=== PATIENT | male | born 1980 | race Caucasian/White ===

== ENCOUNTER 2017-02-25 11:00 | Inpatient (IN) | payer MEDICARE, MEDICAID ==
[2017-02-25] MEDS ORDERED: LORazepam INJ* 2 MG/ML 1 ML VIAL IV PRN (14:48)
[2017-02-25] MEDS ORDERED: diPHENhydraMINE PO* 25 MG PO PRN (14:48)
[2017-02-25] MEDS ORDERED: Acetaminophen TAB* 325 MG PO PRN (14:50)
--- NOTE | 2017-02-25 15:21 | ADMNOTE ---
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 Antoine began having seizures as an , in the setting of fever a couple of days after getting a DPT shot. He's had medically refractory epilepsy ever since and his longest seizure-free period was about 3 months in childhood. He was initially treated with phenobarbital until Mom had concerns it was interfering with his learning and development. He has been on many anticonvulsants with little perceived benefit according to parents and significant side effects. He had VNS implanted at age 23. Antoine has two main types of seizures. The first they call "grand mals" which occur without warning, involve tonic stiffening of the arms and legs as well as clonic movements and generally last less than 2 minutes. He is lethargic after this and can be confused. He had a few of these over the weekend (he was home with parents). He also has "quick small" seizures which Mom demonstrates to be facial grimacing and tonic stiffening/myoclonus of the extremities. These occur more frequently than the grand mal seizures. He may fall because of these and wears a helmet. Antoine has also had documented PNEA in the past, but Mom says these don't occur any longer. He used to hold an arm or leg straight and say "I'm having a seizure ". These were documented during an LT admission in [place] and diagnosed as PNEA. Over the years, Antoine has frequently expressed to his parents or senior care workers "I just had a seizure". However, there are no outward signs of this and he is not confused or tired appearing when he says this. His parents say this has been going on for a long time, but more recently, Antoine has become somewhat fixated on the fact that he feels he needs to be in the hospital for monitoring. In addition, senior care workers feel he has been saying this more often. Neither the senior care workers nor his parents say these occur every day. Rather, it is "hit or miss", and may happen a few times per week. When asked what he feels when he tells people he just had a seizure, he is unable to describe the feeling. It is not clear when this last occurred. This long-term video EEG was requested to try and characterize these spells. Mom indicates she wanted to respect Antoine's need to be in the hospital for this. An attempt was made to perform an ambulatory EEG but there was a technical problem and data was not recorded. PRIOR AEDs: phenobarbital: stopped due to concerns for cognitive side effects phenytoin: ? lack of efficacy gabapentin: behavioral problems levetiracetam: behavioral problems/psychogenic event topiramate: behavioral probs felbamate: tried for short time, unknown reason for stopping zonisamide: slowed cognition, behavioral problems? Tegretol XR: current (dad indicates he had behavioral problems with higher doses as a child) Lamictal: current Banzel: current (started around 2012) Epilepsy Risk Factors: Developmental delay - walked around 22 months, had language regression, graduated [employer] age 23. Febrile seizure with DPT PNEA Risk Factors: intellectual disability, history of behavioral problems PMH/Surg Hx/FS Hx/Imm Hx Endocrine/Hematology History: Denies: Hx Diabetes, Hx Thyroid Disease Cardiovascular History: Denies: Hx Hypertension Respiratory History: Reports: Hx Seasonal Allergies Denies: Hx Asthma, Hx Chronic Obstructive Pulmonary Disease (COPD) GI History: Denies: Hx Ulcer Neurological History: Reports: Hx Seizures, Other Neuro Impairments/Disorders - MR, epilepsy Psychiatric History: Reports: Hx Depression - Surgical History Surgery Procedure, Year, and Place: 2004 VNS Placement, NEURO SURGERY Infectious Disease History: Denies: Hx Hepatitis, Hx Human Immunodeficiency Virus (HIV), Traveled Outside the [place] in Last 30 Days - Family History Known Family History: Positive: Unknown Family History: No FHx of CVA. FHx of skin CA - Social History Lives: [facility] Alcohol Use: None Substance Use Type: Reports: None Smoking Status (MU): Never Smoked Tobacco EMU Exam - Exam Physical/Neurological Exam: Physical Exam: General: Well appearing in no acute distress. Eyes: normal conjunctiva, pupils were equal and reactive. Neck: supple, no bruit ENT: atraumatic, normal oropharynx Pulmonary: clear to auscultation, good respiratory effort Cardiac: regular rate and rhythmic, no murmurs/rubs/gallops, pulses palpable MSK: no extremity deformities Derm: no rashes or lesions Neurological Exam: Mental Status: Awake and alert. Oriented to person, place. Spontaneous speech is sparse, slow with mild dysarthria. Cranial Nerves: Visual cortes full to confrontation. Fundoscopic examination not done. Pupils were equal, round, and reactive constricting from 3mm to 2mm. Versions were full and without nystagmus. Facial musculature and sensation were symmetric. Hearing grossly intact to finger rub. Palate was upgoing bilaterally. Tongue was midline. Shoulder shrug was symmetric. Motor: Bulk, tone, and strength were normal throughout. Pronator drift was absent. There were no abnormal movements. Sensory: Sensation to light touch intact. Romberg was deferred. Coordination: Finger to nose intact. Reflexes: 2+ throughout the upper and lower extremities with downgoing toes bilaterally. Gait: deferred. EMU Review of Systems Review of Systems: A 12 point review of systems was completed and significantly positive for: as per HPI. The remainder of the review was negative except as stated above in the HPI. EMU Diagnostics - Diagnostic Most Recent Vital Signs: Vital Signs: Temp Pulse Resp BP Pulse Ox 98.1 F 70 16 113/77 100 02/25/17 13:41 02/25/17 13:41 02/25/17 13:41 02/25/17 13:41 02/25/17 13:41 Interim video-EEG long-term monitoring report: 07/15/11 EEG frequent discharges of the left central/parietal region EMU Assessment/Plan - Assessment/Plan Assessment/Plan: 36 year old with medically intractable epilepsy and developmental disability presenting for characterization of episodes where he reports to staff or parents that he just had a seizure, but outwardly does not appear to be having a seizure. He has two main known epileptic seizure types consisting of convulsions and shorter episodes of tonic stiffening/myoclonus, the latter of which are more frequent. The frequency of the episodes of concern is not clear, but seem to happen every week and at one point were reported to Dr. Albarado to be occurring daily. The goal of the present prison video/EEG monitoring session is to characterize these events of possible subclinical seizure activity. Plan: Admit to the Epilepsy Service, Dr. Hook attending intermediate frame tender video EEG monitoring for the purpose of characterizing events above Seizure precautions IV lorazepam as needed for prolonged seizures > 3 minutes Home AED regimen: Tegretol XR 400mg BID and 100mg at bedtime, Banzel 600mg BID, Lamictal 400mg QAM and 450mg QPM. Will continue medications unchanged since these episodes are happening semi-regularly despite medications. Continue on other prescribed home medications.
[2017-02-25] MEDS: RUFINAMIDE 400 MG PO SCH (17:01)
[2017-02-25] MEDS: Fluticasone NASAL SPRAY 50MCG* 16 gm SPRAY BTL BOTH NARES SCH (20:07)
[2017-02-25] MEDS: LAMOTRIGINE 100 MG PO SCH ×2 (20:08)
[2017-02-25] MEDS: CARBAMAZEPINE 100 MG PO SCH (20:09)
[2017-02-25] MEDS: CARBAMAZEPINE 200 MG PO SCH (20:10)
[2017-02-25] MEDS: DOCUSATE 100 MG PO SCH (20:11)
[2017-02-25] MEDS: GUAR GUM PO SCH (20:11)
[2017-02-25] MEDS: [UNRECOGNIZED DRUG - OTHER] TOPICAL SCH (20:23)
[2017-02-26] MEDS: [UNRECOGNIZED DRUG - OTHER] TOPICAL SCH ×2 (09:19→20:48)
[2017-02-26] MEDS: RUFINAMIDE 400 MG PO SCH ×2 (09:31→17:12)
[2017-02-26] MEDS: LAMOTRIGINE 100 MG PO SCH ×3 (09:31→20:44)
[2017-02-26] MEDS: DOCUSATE 100 MG PO SCH ×2 (09:31→20:44)
[2017-02-26] MEDS: FLUOXETINE 20 MG PO SCH (09:32)
[2017-02-26] MEDS: CARBAMAZEPINE 200 MG PO SCH ×2 (09:32→20:46)
[2017-02-26] MEDS: [UNRECOGNIZED DRUG - OTHER] PO SCH (09:33)
[2017-02-26] MEDS: FLUOXETINE 10 MG PO SCH (09:33)
[2017-02-26] MEDS: CETIRIZINE 10 MG PO PRN (09:34)
[2017-02-26] MEDS: GUAR GUM PO SCH ×2 (09:34→20:48)
--- NOTE | 2017-02-26 11:12 | PN ---
Epilepsy Service Progress Note - Subjective DOS 02/26/17 Patient experienced a typical seizure at 19:14 which consisted of tonic stiffening. No events of him feeling like he's having a seizure. - Medications Active Medications: Acetaminophen (Tylenol Tab*) 650 mg PO Q4H PRN PRN Reason: FEVER/PAIN Carbamazepine (Tegretol Xr Tab(*)) 100 mg PO BEDTIME [facility] Last Admin: 02/25/17 20:09 Dose: 100 mg Carbamazepine (Tegretol Xr Tab(*)) 400 mg PO BID [facility] Last Admin: 02/26/17 09:32 Dose: 400 mg Cetirizine HCl (Zyrtec*) 10 mg PO DAILY PRN; Protocol PRN Reason: Allergy Symptoms Last Admin: 02/26/17 09:34 Dose: 10 mg Diphenhydramine HCl (Benadryl Po*) 25 mg PO Q6H PRN PRN Reason: ITCHING Docusate Sodium (Colace Cap*) 100 mg PO BID [facility] Last Admin: 02/26/17 09:31 Dose: 100 mg Fluoxetine HCl (Prozac Cap*) 10 mg PO QAM [facility] Last Admin: 02/26/17 09:33 Dose: 10 mg Fluoxetine HCl (Prozac Cap*) 60 mg PO QAM [facility] Last Admin: 02/26/17 09:32 Dose: 60 mg Fluticasone Propionate (Flonase Nasal [place] 50mcg*) 2 spray BOTH NARES 1999 [facility] Last Admin: 02/25/17 20:07 Dose: 2 spray Lamotrigine (Lamictal Tab(*)) 400 mg PO QA [facility] Last Admin: 02/26/17 09:31 Dose: 400 mg Lamotrigine (Lamictal Tab(*)) 400 mg PO 1999 [facility] Last Admin: 02/25/17 20:08 Dose: 400 mg Lamotrigine (Lamictal Tab(*)) 50 mg PO 1999 [facility] Last Admin: 02/25/17 20:08 Dose: 50 mg Lorazepam (Ativan Inj*) 1 mg IV Q8H PRN PRN Reason: Generalized Tonic Clonic Seizu Multivitamins (Theragran Tab*) 1 tab PO DAILY [facility] Last Admin: 02/26/17 09:33 Dose: 1 tab Non-Formulary Medication ([place] Tar-Salicylic Acid [Tarsum 10-5 %]) 1 sha TOPICAL EVERY OTHER DAY [facility] Pto: Guar Gum [ Nutrisource Fiber] 1 Kevin 1 kevin PO BID [facility] Last Admin: 02/26/17 09:34 Dose: 1 kevin Pto: Rufinamide [ (Banzel] 400 Mg Tabs) 600 mg PO 0800,1700 [facility] Last Admin: 02/26/17 09:31 Dose: 600 mg Pto:Nf Med* (Bobby (Derm Compound)) 1 apply TOPICAL BID [facility] Last Admin: 02/26/17 09:19 Dose: Not Given EMU Diagnostics - Diagnostic Most Recent Vital Signs: Vital Signs: Temp Pulse Resp BP Pulse Ox 97.9 F 81 18 125/60 100 02/26/17 08:58 02/26/17 08:58 02/26/17 08:00 02/26/17 08:58 02/25/17 19:23 Interim video-EEG long-term monitoring report: #01 02/25: Medications: Tegretol XR 400mg BID and 100mg at bedtime, Banzel 600mg BID, Lamictal 400mg QAM and 450mg QPM Background demonstrates diffuse mixed slowing with slightly higher amplitudes evident over the left hemispere, likely secondary to breach effect. There is a PDR of ~6Hz. There is intermittent focal slowing in the left paracentral region affecting C3, P3 and O1. There are frequent, multifocal discharges with the majority being over the left hemisphere. There are two populations which are seen most frequently. The first are moderate to high voltage, spike and slow wave, sometimes with polyspike components, in the left temporal region. These are typically maximal at T3 and T5 with a field to T1 and F7 but sometimes shift with maximal expression seen over T1 and F7. The second population is maximally expressed at P3 and T5 with a field to PZ and these are moderate voltage spike and slow wave discharges. There are also left frontocentral sharp waves maximal at FP1 and and F3 with a field to C3 and into the central regions. At times, these discharges appeared in clusters lasting 2 to 3 seconds at 4 to 5 Hz. In the right hemisphere, there are occasional, independent moderate voltage, spike and slow wave discharges maximally expressed at T2, F8 and T4 with a field to T6. The patient experienced a seizure at 19:14. The EEG demonstrated sudden diffuse voltage suppression for 7 seconds followed by rhythmic 5 Hz activity primarily in the left hemisphere, punctuated by high voltage sharp waves at 2 Hz at CZ and C3 with a field to the left frontal region as well (FP1). This gradually decreased in frequency over 10 seconds before abruptly terminating. Clinically, the patient exhibiting sudden tonic stiffening bilaterally with legs extended and his elbows bent and wrists flexed down near his waist. His neck flexed forward slightly and he had a facial grimace. He slowly relaxed once the EEG demonstrated 5 Hz rhythmic activity. Nursing began testing him immediately upon entering the room, after the seizure was over, and he was able to follow commands. When asked if he felt back to normal he said "I don't know", in his typical fashion. EMU Exam - Exam Physical/Neurological Exam: Physical Exam: General: Well appearing in no acute distress. MSK: no extremity deformities Derm: no rashes or lesions Neurological Exam: Mental Status: Awake and alert. Oriented to person, place. Spontaneous speech is sparse, slow with mild dysarthria. He was watching [employer] this morning Cranial Nerves: Visual cortes full to confrontation. Pupils were equal, round, and reactive constricting from 3mm to 2mm. Versions were full and without nystagmus. Facial musculature and sensation were symmetric. Hearing grossly intact to finger rub. Palate was upgoing bilaterally. Tongue was midline. Shoulder shrug was symmetric. Motor: Bulk, tone, and strength were normal throughout. Pronator drift was absent. There were no abnormal movements. Sensory: Sensation to light touch intact. Romberg was deferred. Coordination: Finger to nose intact. Reflexes: 2+ throughout the upper and lower extremities with downgoing toes bilaterally. Gait: deferred. 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 His seizures typically consist of relatively brief episodes of tonic stiffening and other episodes of convulsions. He is admitted for LTM to characterize events where he reports to family or caregivers that he just had a seizure, but there is no outward sign of this. This has been going on for years but may have increased in frequency more recently. Differential includes subclinical seizures as well PNEA (he has a history of this in the past). No typical events recorded yet. Plan: * Continue terminal manager video EEG monitoring to capture typical episodes * Seizure precautions * continue home doses of AEDs at this time - Tegretol XR 400mg BID and 100mg QHS , Banzel 600mg BID and Lamictal 400mg QAM and 450mg QPM * continue other home meds * purpose and goal of monitoring session reinforced with [facility] staff member present with Antoine this morning. * Ativan 1mg IV prn GTC
--- NOTE | 2017-02-26 11:50 | EEG ---
HALFWAY VIDEO/EEG MONITORING - Monitoring Monitoring Start Date: 02/25/17 Current Monitoring Session: 02/25/17 to [] Introduction: INTRODUCTION: The EEG was monitored from 21 scalp electrodes. Nineteen electrodes consisted of the standard parasagittal, temporal and midline leads of the International 10 -20 system. In addition, special electrodes FT9 and FT10 were placed. EEG data were recorded on an [employer] system with simultaneous MPEG-4 digital video recording of patient behavior. EEG recording was in a monopolar montage with all electrodes referenced to FCz. Significant behavioral events were signaled by an event button, or putative electrical seizure events were detected by a computer program. All EEG data were reviewed in their entirety on a monitor with reconstruction of montages and adjustments of sensitivity and filtering. Simultaneous patient behavior was viewed on an adjacent monitor and correlated with the EEG. - Medications Active Medications: Acetaminophen (Tylenol Tab*) 650 mg PO Q4H PRN PRN Reason: FEVER/PAIN Carbamazepine (Tegretol Xr Tab(*)) 100 mg PO BEDTIME [facility] Last Admin: 02/25/17 20:09 Dose: 100 mg Carbamazepine (Tegretol Xr Tab(*)) 400 mg PO BID [facility] Last Admin: 02/26/17 09:32 Dose: 400 mg Cetirizine HCl (Zyrtec*) 10 mg PO DAILY PRN; Protocol PRN Reason: Allergy Symptoms Last Admin: 02/26/17 09:34 Dose: 10 mg Diphenhydramine HCl (Benadryl Po*) 25 mg PO Q6H PRN PRN Reason: ITCHING Docusate Sodium (Colace Cap*) 100 mg PO BID [facility] Last Admin: 02/26/17 09:31 Dose: 100 mg Fluoxetine HCl (Prozac Cap*) 10 mg PO QAM [facility] Last Admin: 02/26/17 09:33 Dose: 10 mg Fluoxetine HCl (Prozac Cap*) 60 mg PO QAM [facility] Last Admin: 02/26/17 09:32 Dose: 60 mg Fluticasone Propionate (Flonase Nasal [place] 50mcg*) 2 spray BOTH NARES 1999 [facility] Last Admin: 02/25/17 20:07 Dose: 2 spray Lamotrigine (Lamictal Tab(*)) 400 mg PO QAM [facility] Last Admin: 02/26/17 09:31 Dose: 400 mg Lamotrigine (Lamictal Tab(*)) 400 mg PO 1999 [facility] Last Admin: 02/25/17 20:08 Dose: 400 mg Lamotrigine (Lamictal Tab(*)) 50 mg PO 1999 [facility] Last Admin: 02/25/17 20:08 Dose: 50 mg Lorazepam (Ativan Inj*) 1 mg IV Q8H PRN PRN Reason: Generalized Tonic Clonic Seizu Multivitamins (Theragran Tab*) 1 tab PO DAILY [facility] Last Admin: 02/26/17 09:33 Dose: 1 tab Non-Formulary Medication ([place] Tar-Salicylic Acid [Tarsum 10-5 %]) 1 sha TOPICAL EVERY OTHER DAY [facility] Pto: Guar Gum [ Nutrisource Fiber] 1 Kevin 1 kevin PO BID [facility] Last Admin: 02/26/17 09:34 Dose: 1 kevin Pto: Rufinamide [ (Banzel] 400 Mg Tabs) 600 mg PO 0800,1700 [facility] Last Admin: 02/26/17 09:31 Dose: 600 mg Pto:Nf Med* (Bobby (Derm Compound)) 1 apply TOPICAL BID [facility] Last Admin: 02/26/17 09:19 Dose: Not Given - Description Background: The waking background showed diminished organization with defined but reduced anterior-posterior voltage and frequency gradients. There was a posterior dominant rhythm of 6 Hertz, which was symmetrical and showed normal reactivity but is slower than expected for age. Anteriorly, there was the expected pattern of lower voltage and more irregular theta and beta rhythms. The background demonstrated diffuse mixed slowing with slightly higher amplitudes evident over the left hemispere, likely secondary to breach effect. There is intermittent focal slowing in the left paracentral region affecting C3, P3 and O1. The sleep background was appropriately organized with well-developed spindles and vertex waves indicative of stage 2 sleep. These sleep transients showed appropriate morphology and were bilaterally synchronous and symmetrical but were high amplitude over the left hemisphere secondary to breach effect. Development of diffuse delta range frequencies with dropout of stage 2 architecture accompanied transition to slow wave sleep, and a lower voltage mixed frequency pattern associated with eye movements was consistent with REM sleep. Intericatal Epileptiform Activity: #01 02/25: Medications: Tegretol XR 400mg BID and 100mg QHS, Lamictal 400mg QAM and 450mg QPM and Banzel 600mg BID Background demonstrates diffuse mixed slowing with slightly higher amplitudes evident over the left hemispere, likely secondary to breach effect. There is a PDR of ~6Hz. There is intermittent focal slowing in the left paracentral region affecting C3, P3 and O1. There are frequent, multifocal discharges with the majority being over the left hemisphere. There are two populations which are seen most frequently. The first are moderate to high voltage, spike and slow wave, sometimes with polyspike components, in the left temporal region. These are typically maximal at T3 and T5 with a field to T1 and F7 but sometimes shift with maximal expression seen over T1 and F7. The second population is maximally expressed at P3 and T5 with a field to PZ and these are moderate voltage spike and slow wave discharges. When the patient is resting quietly, these are sometimes seen to occur at 2 to 3 Hz for up to a minute. There are also left frontocentral sharp waves maximal at FP1 and and F3 with a field to C3 and into the central regions. At times, these discharges appeared in clusters lasting 2 to 3 seconds at 4 to 5 Hz. In the right hemisphere, there are occasional, independent moderate voltage, spike and slow wave discharges maximally expressed at T2, F8 and T4 with a field to T6. #02 /11: Medications: Tegretol XR 400mg BID and 100mg QHS, Lamictal 400mg QAM and 450mg QPM and Banzel 600mg BID Background same as previous day and described above. No changes Ictal Activity: #01 02/25: The patient experienced a seizure at 19:14. The EEG demonstrated sudden diffuse voltage suppression for 7 seconds followed by rhythmic 5 Hz activity primarily in the left hemisphere, punctuated by high voltage sharp waves at 2 Hz at CZ and C3 with a field to the left frontal region as well (FP1) . This gradually decreased in frequency over 10 seconds before abruptly terminating. Clinically, the patient exhibiting sudden tonic stiffening bilaterally with legs extended and his elbows bent and wrists flexed down near his waist. His neck flexed forward slightly and he had a facial grimace. He slowly relaxed once the EEG demonstrated 5 Hz rhythmic activity. Nursing began testing him immediately upon entering the room, after the seizure was over, and he was able to follow commands. When asked if he felt back to normal he said "I don't know", in his typical fashion. Events of concern not captured. #02 02/26: He had two typical tonic seizures during this day of recording. The first occurred at 13:58 and the second at 15:54. He had tonic stiffening of the right greater than left arm, with some repetitive movement of the left hand. The seizures last seconds but a clear termination is not evident. He was able to press the event button himself after the second seizure. He is back to baseline almost immediately. He had a typical event of concern at 17:47 where he indicated to his mother "I think I felt like I shook just then". Just prior to this, he was eating dinner with the fork in his left hand and his right hand was noted to move and has some subtle myoclonic movements. These movements followed a 0.5 second discharge cluster in the left frontal region, but were not clearly time-locked to this activity. In addition, there were many other times when similar discharge clusters were noted in the EEG and there was no clinical manifestation. These movements were potentially, but not definitively, epileptic in nature.
[2017-02-26] MEDS: Fluticasone NASAL SPRAY 50MCG* 16 gm SPRAY BTL BOTH NARES SCH (20:42)
[2017-02-26] MEDS: CARBAMAZEPINE 100 MG PO SCH (20:44)
[2017-02-27] MEDS: RUFINAMIDE 400 MG PO SCH ×2 (08:35→17:03)
[2017-02-27] MEDS: GUAR GUM PO SCH ×2 (08:35→20:02)
[2017-02-27] MEDS: CARBAMAZEPINE 200 MG PO SCH ×2 (08:37→20:21)
[2017-02-27] MEDS: [UNRECOGNIZED DRUG - OTHER] PO SCH (08:38)
[2017-02-27] MEDS: FLUOXETINE 20 MG PO SCH (08:39)
[2017-02-27] MEDS: FLUOXETINE 10 MG PO SCH (08:39)
[2017-02-27] MEDS: CETIRIZINE 10 MG PO PRN (08:39)
[2017-02-27] MEDS: DOCUSATE 100 MG PO SCH ×2 (08:40→20:04)
[2017-02-27] MEDS: LAMOTRIGINE 100 MG PO SCH ×3 (08:40→20:03)
[2017-02-27] MEDS: [UNRECOGNIZED DRUG - OTHER] TOPICAL SCH ×2 (08:46→20:05)
[2017-02-27] MEDS ORDERED: SALICYLIC ACID TOPICAL SCH (09:00)
[2017-02-27] MEDS ORDERED: COAL TAR TOPICAL SCH (09:00)
--- NOTE | 2017-02-27 13:29 | PN ---
Epilepsy Service Progress Note - Subjective DOS 02/27/17 Patient had 2 tonic seizures yesterday. He had one episode where he told his mother he felt like he shook a little bit. This was a typical event. - Medications Active Medications: Acetaminophen (Tylenol Tab*) 650 mg PO Q4H PRN PRN Reason: FEVER/PAIN Carbamazepine (Tegretol Xr Tab(*)) 100 mg PO BEDTIME [facility] Last Admin: 02/26/17 20:44 Dose: 100 mg Carbamazepine (Tegretol Xr Tab(*)) 400 mg PO BID [facility] Last Admin: 02/27/17 08:37 Dose: 400 mg Cetirizine HCl (Zyrtec*) 10 mg PO DAILY PRN; Protocol PRN Reason: Allergy Symptoms Last Admin: 02/27/17 08:39 Dose: 10 mg Diphenhydramine HCl (Benadryl Po*) 25 mg PO Q6H PRN PRN Reason: ITCHING Docusate Sodium (Colace Cap*) 100 mg PO BID [facility] Last Admin: 02/27/17 08:40 Dose: 100 mg Fluoxetine HCl (Prozac Cap*) 10 mg PO QAM [facility] Last Admin: 02/27/17 08:39 Dose: 10 mg Fluoxetine HCl (Prozac Cap*) 60 mg PO QAM [facility] Last Admin: 02/27/17 08:39 Dose: 60 mg Fluticasone Propionate (Flonase Nasal [place] 50mcg*) 2 spray BOTH NARES 1999 [facility] Last Admin: 02/26/17 20:42 Dose: 2 spray Lamotrigine (Lamictal Tab(*)) 400 mg PO QA [facility] Last Admin: 02/27/17 08:40 Dose: 400 mg Lamotrigine (Lamictal Tab(*)) 400 mg PO 1999 [facility] Last Admin: 02/26/17 20:44 Dose: 400 mg Lamotrigine (Lamictal Tab(*)) 50 mg PO 1999 [facility] Last Admin: 02/26/17 20:43 Dose: 50 mg Lorazepam (Ativan Inj*) 1 mg IV Q8H PRN PRN Reason: Generalized Tonic Clonic Seizu Multivitamins (Theragran Tab*) 1 tab PO DAILY [facility] Last Admin: 02/27/17 08:38 Dose: 1 tab Non-Formulary Medication ([place] Tar-Salicylic Acid [Tarsum 10-5 %]) 1 sha TOPICAL EVERY OTHER DAY [facility] Pto: Guar Gum [ Nutrisource Fiber] 1 Kevin 1 kevin PO BID [facility] Last Admin: 02/27/17 08:35 Dose: 1 kevin Pto: Rufinamide [ (Banzel] 400 Mg Tabs) 600 mg PO 0800,1700 [facility] Last Admin: 02/27/17 08:35 Dose: 600 mg Pto:Nf Med* (Bobby (Derm Compound)) 1 apply TOPICAL BID [facility] Last Admin: 02/27/17 08:46 Dose: 1 apply EMU Diagnostics - Diagnostic Most Recent Vital Signs: Vital Signs: Temp Pulse Resp BP Pulse Ox 98.2 F 70 18 100/56 100 02/27/17 08:37 02/27/17 08:37 02/27/17 08:37 02/27/17 08:37 02/27/17 08:37 Interim video-EEG long-term monitoring report: #02/25: Medications: Tegretol XR 400mg BID and 100mg at bedtime, Banzel 600mg BID, Lamictal 400mg QAM and 450mg QPM Background demonstrates diffuse mixed slowing with slightly higher amplitudes evident over the left hemispere, likely secondary to breach effect. There is a PDR of ~6Hz. There is intermittent focal slowing in the left paracentral region affecting C3, P3 and O1. There are frequent, multifocal discharges with the majority being over the left hemisphere. There are two populations which are seen most frequently. The first are moderate to high voltage, spike and slow wave, sometimes with polyspike components, in the left temporal region. These are typically maximal at T3 and T5 with a field to T1 and F7 but sometimes shift with maximal expression seen over T1 and F7. The second population is maximally expressed at P3 and T5 with a field to PZ and these are moderate voltage spike and slow wave discharges. There are also left frontocentral sharp waves maximal at FP1 and and F3 with a field to C3 and into the central regions. At times, these discharges appeared in clusters lasting 2 to 3 seconds at 4 to 5 Hz. In the right hemisphere, there are occasional, independent moderate voltage, spike and slow wave discharges maximally expressed at T2, F8 and T4 with a field to T6. The patient experienced a seizure at 19:14. The EEG demonstrated sudden diffuse voltage suppression for 7 seconds followed by rhythmic 5 Hz activity primarily in the left hemisphere, punctuated by high voltage sharp waves at 2 Hz at CZ and C3 with a field to the left frontal region as well (FP1). This gradually decreased in frequency over 10 seconds before abruptly terminating. Clinically, the patient exhibiting sudden tonic stiffening bilaterally with legs extended and his elbows bent and wrists flexed down near his waist. His neck flexed forward slightly and he had a facial grimace. He slowly relaxed once the EEG demonstrated 5 Hz rhythmic activity. Nursing began testing him immediately upon entering the room, after the seizure was over, and he was able to follow commands. When asked if he felt back to normal he said "I don't know", in his typical fashion. #02 02/26: No change in medications. Patient had 2 tonic seizures with similar characteristics as described above. He also had one typical event where he felt like he was shaking. His right hand was noted to jerk a little bit. This occurred immediately after a left frontal discharge cluster was noted. 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 MSK: no extremity deformities Derm: no rashes or lesions Neurological Exam: Mental Status: Awake and alert. Oriented to person, place. Spontaneous speech is sparse, slow with mild dysarthria. Cranial Nerves: Visual cortes full to confrontation. Pupils were equal, round, and reactive constricting from 3mm to 2mm. Versions were full and without nystagmus. Facial musculature and sensation were symmetric. Hearing grossly intact to finger rub. Palate was upgoing bilaterally. Tongue was midline. Shoulder shrug was symmetric. Motor: Bulk, tone, and strength were normal throughout. Pronator drift was absent. There were no abnormal movements. Sensory: Sensation to light touch intact. Romberg was deferred. Coordination: Finger to nose intact. Reflexes: 2+ throughout the upper and lower extremities with downgoing toes bilaterally. Gait: deferred. 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 His seizures typically consist of relatively brief episodes of tonic stiffening and other episodes of convulsions. He is admitted for LTM to characterize events where he reports to family or caregivers that he just had a seizure, but there is no outward sign of this. This has been going on for years but may have increased in frequency more recently. Differential includes subclinical seizures as well PNEA (he has a history of this in the past). 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 He has also had 3 tonic seizure. Will continue LTM to capture additional spells Plan: * Continue [facility] video EEG monitoring to capture typical episodes * Seizure precautions * continue home doses of AEDs - Tegretol XR 400mg BID and 100mg QHS, Banzel 600mg BID and Lamictal 400mg QAM and 450mg QPM * continue other home meds. * Ativan 1mg IV prn GTC
[2017-02-27] MEDS: Fluticasone NASAL SPRAY 50MCG* 16 gm SPRAY BTL BOTH NARES SCH (20:02)
[2017-02-27] MEDS: CARBAMAZEPINE 100 MG PO SCH (20:04)
[2017-02-28 08:16] VITALS: BP 108/71
[2017-02-28] MEDS: DOCUSATE 100 MG PO SCH (08:33)
[2017-02-28] MEDS: GUAR GUM PO SCH (08:33)
[2017-02-28] MEDS: LAMOTRIGINE 100 MG PO SCH (08:34)
[2017-02-28] MEDS: CARBAMAZEPINE 200 MG PO SCH (08:38)
[2017-02-28] MEDS: FLUOXETINE 20 MG PO SCH (08:38)
[2017-02-28] MEDS: [UNRECOGNIZED DRUG - OTHER] TOPICAL SCH (08:39)
[2017-02-28] MEDS: [UNRECOGNIZED DRUG - OTHER] PO SCH (08:39)
[2017-02-28] MEDS: FLUOXETINE 10 MG PO SCH (08:39)
[2017-02-28] MEDS: CETIRIZINE 10 MG PO PRN (08:40)
[2017-02-28] MEDS: RUFINAMIDE 400 MG PO SCH (08:40)
--- NOTE | 2017-02-28 13:08 | PN ---
Epilepsy Service Progress Note - Subjective DOS 02/28/17 Antoine had one tonic seizure around 1900 last night. No events of feeling like he was having a seizure without any physical signs. Mom is grateful for the admission and now looking towards getting VNS battery changed and finding out more about the possibility of medical marijuana in him. - Medications Active Medications: Acetaminophen (Tylenol Tab*) 650 mg PO Q4H PRN PRN Reason: FEVER/PAIN Carbamazepine (Tegretol Xr Tab(*)) 100 mg PO BEDTIME [facility] Last Admin: 02/27/17 20:04 Dose: 100 mg Carbamazepine (Tegretol Xr Tab(*)) 400 mg PO BID [facility] Last Admin: 02/28/17 08:38 Dose: 400 mg Cetirizine HCl (Zyrtec*) 10 mg PO DAILY PRN; Protocol PRN Reason: Allergy Symptoms Last Admin: 02/28/17 08:40 Dose: 10 mg Diphenhydramine HCl (Benadryl Po*) 25 mg PO Q6H PRN PRN Reason: ITCHING Docusate Sodium (Colace Cap*) 100 mg PO BID [facility] Last Admin: 02/28/17 08:33 Dose: 100 mg Fluoxetine HCl (Prozac Cap*) 10 mg PO QAM [facility] Last Admin: 02/28/17 08:39 Dose: 10 mg Fluoxetine HCl (Prozac Cap*) 60 mg PO QAM [facility] Last Admin: 02/28/17 08:38 Dose: 60 mg Fluticasone Propionate (Flonase Nasal [place] 50mcg*) 2 spray BOTH NARES 1999 [facility] Last Admin: 02/27/17 20:02 Dose: 2 spray Lamotrigine (Lamictal Tab(*)) 400 mg PO QAM [facility] Last Admin: 02/28/17 08:34 Dose: 400 mg Lamotrigine (Lamictal Tab(*)) 400 mg PO 1999 [facility] Last Admin: 02/27/17 20:03 Dose: 400 mg Lamotrigine (Lamictal Tab(*)) 50 mg PO 1999 [facility] Last Admin: 02/27/17 20:02 Dose: 50 mg Lorazepam (Ativan Inj*) 1 mg IV Q8H PRN PRN Reason: Generalized Tonic Clonic Seizu Multivitamins (Theragran Tab*) 1 tab PO DAILY [facility] Last Admin: 02/28/17 08:39 Dose: 1 tab Non-Formulary Medication ([place] Tar-Salicylic Acid [Tarsum 10-5 %]) 1 sha TOPICAL EVERY OTHER DAY [facility] Pto: Guar Gum [ Nutrisource Fiber] 1 Kevin 1 kevin PO BID [facility] Last Admin: 02/28/17 08:33 Dose: 1 kevin Pto: Rufinamide [ (Banzel] 400 Mg Tabs) 600 mg PO 0800,1700 [facility] Last Admin: 02/28/17 08:40 Dose: 600 mg Pto:Nf Med* (Bobby (Derm Compound)) 1 apply TOPICAL BID [facility] Last Admin: 02/28/17 08:39 Dose: 1 apply EMU Diagnostics - Diagnostic Most Recent Vital Signs: Vital Signs: Temp Pulse Resp BP Pulse Ox 98.0 F 69 18 108/71 97 02/28/17 08:15 02/28/17 08:15 02/28/17 08:15 02/28/17 08:15 02/28/17 08:15 Interim video-EEG long-term monitoring report: #02/25: Medications: Tegretol XR 400mg BID and 100mg at bedtime, Banzel 600mg BID, Lamictal 400mg QAM and 450mg QPM Background demonstrates diffuse mixed slowing with slightly higher amplitudes evident over the left hemispere, likely secondary to breach effect. There is a PDR of ~6Hz. There is intermittent focal slowing in the left paracentral region affecting C3, P3 and O1. There are frequent, multifocal discharges with the majority being over the left hemisphere. There are two populations which are seen most frequently. The first are moderate to high voltage, spike and slow wave, sometimes with polyspike components, in the left temporal region. These are typically maximal at T3 and T5 with a field to T1 and F7 but sometimes shift with maximal expression seen over T1 and F7. The second population is maximally expressed at P3 and T5 with a field to PZ and these are moderate voltage spike and slow wave discharges. There are also left frontocentral sharp waves maximal at FP1 and and F3 with a field to C3 and into the central regions. At times, these discharges appeared in clusters lasting 2 to 3 seconds at 4 to 5 Hz. In the right hemisphere, there are occasional, independent moderate voltage, spike and slow wave discharges maximally expressed at T2, F8 and T4 with a field to T6. The patient experienced a seizure at 19:14. The EEG demonstrated sudden diffuse voltage suppression for 7 seconds followed by rhythmic 5 Hz activity primarily in the left hemisphere, punctuated by high voltage sharp waves at 2 Hz at CZ and C3 with a field to the left frontal region as well (FP1). This gradually decreased in frequency over 10 seconds before abruptly terminating. Clinically, the patient exhibiting sudden tonic stiffening bilaterally with legs extended and his elbows bent and wrists flexed down near his waist. His neck flexed forward slightly and he had a facial grimace. He slowly relaxed once the EEG demonstrated 5 Hz rhythmic activity. Nursing began testing him immediately upon entering the room, after the seizure was over, and he was able to follow commands. When asked if he felt back to normal he said "I don't know", in his typical fashion. #02 10: No change in medications. Patient had 2 tonic seizures with similar characteristics as described above. He also had one typical event where he felt like he was shaking. His right hand was noted to jerk a little bit. This occurred immediately after a left frontal discharge cluster was noted. 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 Patient had 1 tonic seizure with similar characteristics EMU Exam - Exam Physical/Neurological Exam: Physical Exam: General: Well appearing in no acute distress. MSK: no extremity deformities Derm: no rashes or lesions Neurological Exam: Mental Status: Awake and alert. Oriented to person, place. Spontaneous speech is sparse, slow with mild dysarthria. Cranial Nerves: Visual cortes full to confrontation. Pupils were equal, round, and reactive constricting from 3mm to 2mm. Versions were full and without nystagmus. Facial musculature and sensation were symmetric. Hearing grossly intact to finger rub. Palate was upgoing bilaterally. Tongue was midline. Shoulder shrug was symmetric. Motor: Bulk, tone, and strength were normal throughout. Pronator drift was absent. There were no abnormal movements. Sensory: Sensation to light touch intact. Romberg was deferred. Coordination: Finger to nose intact. Reflexes: 2+ throughout the upper and lower extremities with downgoing toes bilaterally. Gait: deferred. 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 His seizures typically consist of relatively brief episodes of tonic stiffening and other episodes of convulsions. He is admitted for LTM to characterize events where he reports to family or caregivers that he just had a seizure, but there is no outward sign of this. This has been going on for years but may have increased in frequency more recently. Differential includes subclinical seizures as well PNEA (he has a history of this in the past). 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 He has also had 4 tonic seizures (1-2 per day). Discussed with Mom that the hand movements observed which Antoine perceived and reported as shaking could be related to epileptic discharges (epileptic myoclonus), but there are many more times in his EEG where he has these same types of discharges without any clinical correlate. Overall, these are very small events and I would not recommend changing his medications in order to try and suppress these. Discussed that other potential causes of myoclonus can include medication side effects, metabolic derangements, etc. He is being prepared for discharge today. Plan: * d/c LTM * continue home doses of AEDs on discharge- Tegretol XR 400mg BID and 100mg QHS , Banzel 600mg BID and Lamictal 400mg QAM and 450mg QPM * continue other home meds. * Next steps include VNS battery change and Mom to contact a local provider who may be able to prescribe medical marijuana. Discussed out of pocket costs and difficulty in extrapolating data from the RCTs to the product available for compassionate use in [facility] since the [facility] product is not pure CBD. Gave her the name of Aleyda Ortega, who has prescribed this for another patient of mine. * FU with Dr. Albarado.
--- NOTE | 2017-02-28 13:49 | DS ---
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 Antoine began having seizures as an , in the setting of fever a couple of days after getting a DPT shot. He's had medically refractory epilepsy ever since and his longest seizure-free period was about 3 months in childhood. He was initially treated with phenobarbital until Mom had concerns it was interfering with his learning and development. He has been on many anticonvulsants with little perceived benefit according to parents and significant side effects. He had VNS implanted at age 23. Antoine has two main types of seizures. The first they call "grand mals" which occur without warning, involve tonic stiffening of the arms and legs as well as clonic movements and generally last less than 2 minutes. He is lethargic after this and can be confused. He had a few of these over the weekend (he was home with parents). He also has "quick small" seizures which Mom demonstrates to be facial grimacing and tonic stiffening/myoclonus of the extremities. These occur more frequently than the grand mal seizures. He may fall because of these and wears a helmet. Antoine has also had documented PNEA in the past, but Mom says these don't occur any longer. He used to hold an arm or leg straight and say "I'm having a seizure ". These were documented during an LT admission in [place] and diagnosed as PNEA. Over the years, Antoine has frequently expressed to his parents or half-way workers "I just had a seizure". However, there are no outward signs of this and he is not confused or tired appearing when he says this. His parents say this has been going on for a long time, but more recently, Antoine has become somewhat fixated on the fact that he feels he needs to be in the hospital for monitoring. In addition, half-way workers feel he has been saying this more often. Neither the half-way workers nor his parents say these occur every day. Rather, it is "hit or miss", and may happen a few times per week. When asked what he feels when he tells people he just had a seizure, he is unable to describe the feeling. It is not clear when this last occurred. This long-term video EEG was requested to try and characterize these spells. Mom indicates she wanted to respect Antoine's need to be in the hospital for this. An attempt was made to perform an ambulatory EEG but there was a technical problem and data was not recorded. Admission Examination: General: Well appearing in no acute distress. Eyes: normal conjunctiva, pupils were equal and reactive. Neck: supple, no bruit ENT: atraumatic, normal oropharynx Pulmonary: clear to auscultation, good respiratory effort Cardiac: regular rate and rhythmic, no murmurs/rubs/gallops, pulses palpable MSK: no extremity deformities Derm: no rashes or lesions Neurological Exam: Mental Status: Awake and alert. Oriented to person, place. Spontaneous speech is sparse, slow with mild dysarthria. Cranial Nerves: Visual cortes full to confrontation. Fundoscopic examination not done. Pupils were equal, round, and reactive constricting from 3mm to 2mm. Versions were full and without nystagmus. Facial musculature and sensation were symmetric. Hearing grossly intact to finger rub. Palate was upgoing bilaterally. Tongue was midline. Shoulder shrug was symmetric. Motor: Bulk, tone, and strength were normal throughout. Pronator drift was absent. There were no abnormal movements. Sensory: Sensation to light touch intact. Romberg was deferred. Coordination: Finger to nose intact. Reflexes: 2+ throughout the upper and lower extremities with downgoing toes bilaterally. Gait: deferred. Admission AED Medications: Banzel 600mg BID lamotrigine 400mg QAM and 450mg QPM Tegretol XR 400mg BID and 100mg at bedtime Hospital Course: The patient was admitted to the epilepsy service for long-term video EEG monitoring. The patient had 1 event consisting of reporting to his mother "I feel like I just shook there". Review of the video demonstrated myoclonus of the right hand/arm. This was considered typical of events that he was having at home. During these events, the EEG showed his typical background consisting of frequent multifocal epileptiform discharges. This hand movement did occur in close temporal relationship to a left frontal discharge, and could have represented epileptic myoclonus. However, this same discharge population is seen many times during the recording without any clinical correlate. The exact nature of the movement perceived by the patient is not clear. Unfortunately, a second event was not captured. The following medication medication changes were made during the testing: none Due to the number of seizures he/she had during the admission, The patient was placed on the following temporary medication: none Discharge Examination: same as admission Destination: Home. Diet: Regular. Follow-up: with Dr Albarado Home Medications Medication Instructions Recorded Confirmed Type Acetaminophen TAB* [Tylenol TAB*] 650 mg PO Q4H PRN 04/08/16 02/25/17 History Cetirizine* [ZyrTEC 10 MG TAB*] 10 mg PO DAILY PRN 04/08/16 02/25/17 History [place] Tar-Salicylic Acid [Tarsum 1 sha TOPICAL EVERY OTHER DAY 04/08/16 02/25/17 History 10-5 %] Cold Sore Products [Anbesol Cold 1 oin TOPICAL BID PRN 04/08/16 02/25/17 History Sore Therapy] Docusate CAP* [Colace Cap*] 100 mg PO BID 04/08/16 02/25/17 History FLUoxetine CAP* [Prozac CAP*] 10 mg PO QAM 04/08/16 02/25/17 History FLUoxetine CAP* [Prozac CAP*] 60 mg PO QAM 04/08/16 02/25/17 History Guar Gum [Nutrisource Fiber] 1 ever PO BID 04/08/16 02/25/17 History Hemorrhoidal OINT* [Preparation H*] 1 applic [place] Q12H PRN 04/08/16 02/25/17 History LORazepam TAB(*) [Ativan 1 MG TAB 2 mg PO DAILY PRN MDD 4mg 04/08/16 02/25/17 History (*)] Multivitamins/Minerals TAB* 1 tab PO DAILY 04/08/16 02/25/17 History [Theragran/minerals TAB*] Rufinamide [Banzel] 600 mg PO 0800,1700 04/08/16 02/25/17 History Selenium Sulfide [Selsun Blue] 1 % TOPICAL EVERY OTHER DAY 04/08/16 02/25/17 History Triamcinolone Acetonide (Nasal 110 mcg BOTH NARES 199904/08/16 02/25/17 History [Nasal Allergy 24 Hour] carBAMazepine ER TAB(*) [Tegretol 100 mg PO BEDTIME 04/08/16 02/25/17 History Xr TAB(*)] carBAMazepine ER TAB(*) [Tegretol 400 mg PO BID 04/08/16 02/25/17 History Xr TAB(*)] guaiFENesin LIQ* [Robitussin*] 5 mg PO Q4H PRN 04/08/16 02/25/17 History lamoTRIgine TAB(*) [Lamictal 400 mg PO QAM 04/08/16 02/25/17 History TAB(*)] lamoTRIgine TAB(*) [Lamictal 450 mg PO 2000 04/08/16 02/25/17 History TAB(*)] Topical Wound Care(Nf) 1 apply TOPICAL BID 02/25/17 02/25/17 History
== END 2017-02-28 13:23 | disposition home or self-care (01) | DRG 101 ==
LOC: EMU 12:14
PROVIDERS: ADMIT Psychiatry & Neurology Neurology; ATTEND Psychiatry & Neurology Neurology
PROC: 4A10X4Z Monitoring of Central Nervous Electrical Activity, External Approach (ICD-10-PCS; principal; 2017-02-25)
DX: G40.119 Localization-related (focal) (partial) symptomatic epilepsy and epileptic syndromes with simple partial seizures, intractable, without status epilepticus (principal); F79 Unspecified intellectual disabilities; J30.2 Other seasonal allergic rhinitis
CPT/HCPCS: 95951

== ENCOUNTER 2018-07-27 13:38 | Emergency (ER) | payer MEDICARE, MEDICAID ==
--- OUTSIDE RECORDS SUMMARY | 2018-07-27 13:58 | XMS REPORT | Continuity of Care Document ---
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 Albarado MD Active complex partial seizures Onset: 07/19/2016 Refractory epilepsy Vikas Albarado MD Active Family History Description No Information Available Social History Type Date Description Comments Sex Unknown ETOH Use Denies alcohol use Tobacco Use Start: Unknown Patient has never smoked Smoking Status Reviewed: 07/24/18 Patient has never smoked Allergies, Adverse Reactions, Alerts Date Description Reaction Status Severity Comments 06/10/2014 Pertussis Vaccines Active Medications Medication Date Status Form Strength Qnty SIG Indications Ordering Provider Banzel 07/09 Active Tablets 400mg 75tab 1 in am 1 amando Albarado MD in pm Lorazepam 00/ Active Tablets 2mg 10tab 1 tab by Andre S. /0000 s mouth as Nati, needed for M.D. seizure lasting >3 minutes, 2 or more lasting 1-3 minutes within 6 hours, or 3 or more <1min wit Multivitamins Active Capsules 1 by mouth Unknown / every day Prozac Active Capsules 80mg 2 tab PO Unknown Benefiber Active Powder 1 tblsp in Unknown / liquid po bid Docusate Active Capsules 100mg 60cap 1 by mouth Unknown Sodium 0000 s twice a day Miralax Active Powder 3350NF 238gm 17 gm Unknown / every day mixed w/ 8 oz water/juic e Nizoral Active Cream to face Unknown rash bid prn Cetirizine HCL Active Tablets 10mg 30tab 1 by mouth Unknown /0000 s every day Nizoral A-D Active Shampoo 1% 200un twice a Unknown its week to scalp Tylenol Active Tablets ER 650mg 100ta 1 by mouth Unknown Arthritis Pain /0000 bs every 8 hours as needed Anbesol Active Gel 10% prn for Unknown / mouth sores Nasoocort OTC Active 2 sprays Unknown / each nostril at hs Glyoxide Active apply Unknown Liquid / mixture qid made up of 2 gtts and 1 tsp xylitol in 15 ml of water, swab gumline especially his front. Selenium Active Shampoo 1% 2 times a Unknown Sulfide week Bacitracin Active Ointment 500Unit/G apply to Unknown /0000 M the cuts prn Preparation H Active Cream 1-0.25-14 pt to Unknown / .4-15% apply to anal area as needed Tarsum Active Shampoo 10-5% 2 times a Unknown week Seborrheic Active Cream prn Unknown / Tegretol-XR Active Tablets ER 200mg 120ta take two Christopher /0000 12HR bs tablets by Jami Huerta mouth 2 times a day (allan) Tegretol-XR Active Tablets ER 100mg 30tab take one G40.219 Christopher /0000 12HR s tablet by Jami Huerta mouth at bedtime Lamictal Active Tablets 100mg 255ta take 4 G40.219 Vikas /0000 bs tablets by MD Verena mouth every morning take 4 1/2 tablets by mouth every evening Epidiolex 04/15 Hx Solution 100mg/ml 100ml 1.6ml by G40.219 kingsley Albarado MD - twice a 07/08 day for week then 3.2ml dontrell a day.weight 141lbs Banzel 07/25 Hx Tablets 400mg 90tab 1 1/2 s tablets Jami Huerta - twice a Banzel Hx Tablets 600mg one tab Ayesha /0000 bid Marcadt, T[employer]LLER - 09/02 Nasonex Hx Suspension 50mcg/Act 1Mon prn Unknown /0000 allergic - rhinitis 11/01 Immunizations Description No Information Available Vital Signs Date Vital Result Comment 07/24/2018 12:21pm Height 66.25 inches 5'6.25" Weight 142.50 lb Heart Rate 72 /min BP Systolic 120 mmHg BP Diastolic 82 mmHg BMI (Body Mass Index) 22.8 kg/m2 07/09/2018 1:45pm Height 66.25 inches 5'6.25" Weight 143.50 lb Heart Rate 72 /min BP Systolic 120 mmHg BP Diastolic 82 mmHg BMI (Body Mass Index) 23.0 kg/m2 03/11/2018 2:23pm Height 66.25 inches 5'6.25" Weight 141.00 lb Heart Rate 68 /min BP Systolic 130 mmHg BP Diastolic 90 mmHg BMI (Body Mass Index) 22.6 kg/m2 10/20/2017 2:29pm Height 66.25 inches 5'6.25" Weight 141.00 lb Heart Rate 78 /min BP Systolic Sitting 122 mmHg BP Diastolic Sitting 80 mmHg BMI (Body Mass Index) 22.6 kg/m2 09/02/2017 11:27am Height 66.25 inches 5'6.25" Weight 140.31 lb Heart Rate 88 /min BP Systolic Sitting 126 mmHg declined BP Diastolic Sitting 86 mmHg declined BMI (Body Mass Index) 22.5 kg/m2 08/05/2017 11:19am Height 66.25 inches 5'6.25" Weight 141.12 lb Heart Rate 76 /min BP Systolic 116 mmHg BP Diastolic 70 mmHg BMI (Body Mass Index) 22.6 kg/m2 07/08/2017 11:46am Height 66.25 inches 5'6.25" Weight 136.50 lb Heart Rate 76 /min BP Systolic Sitting 118 mmHg BP Diastolic Sitting 70 mmHg BMI (Body Mass Index) 21.9 kg/m2 06/13/2017 10:39am Height 66.25 inches 5'6.25" Weight 138.38 lb Heart Rate 74 /min BP Systolic 108 mmHg BP Diastolic 80 mmHg BMI (Body Mass Index) 22.2 kg/m2 05/02/2017 9:21am Height 66.25 inches 5'6.25" Heart Rate 72 /min BP Systolic 120 mmHg BP Diastolic 64 mmHg 04/30/2017 2:48pm Height 66.25 inches 5'6.25" Weight 145.25 lb Heart Rate 78 /min BP Systolic 122 mmHg BP Diastolic 82 mmHg BMI (Body Mass Index) 23.3 kg/m2 02/07/2017 10:19am Height 66.25 inches 5'6.25" Weight 138.00 lb Heart Rate 82 /min BP Systolic Sitting 116 mmHg BP Diastolic Sitting 72 mmHg Respiratory Rate 18 /min BMI (Body Mass Index) 22.1 kg/m2 07/19/2016 11:53am Height 66.25 inches 5'6.25" Weight 147.00 lb Heart Rate 80 /min BP Systolic Sitting 118 mmHg BP Diastolic Sitting 70 mmHg Respiratory Rate 17 /min BMI (Body Mass Index) 23.5 kg/m2 02/13/2016 1:10pm Height 66.25 inches 5'6.25" Weight 145.00 lb Heart Rate 81 /min BP Systolic Sitting 120 mmHg BP Diastolic Sitting 76 mmHg O2 % BldC Oximetry 97 % BMI (Body Mass Index) 23.2 kg/m2 11/03/2015 12:02pm Height 66.25 inches 5'6.25" Weight 142.00 lb Heart Rate 76 /min BP Systolic Sitting 124 mmHg BP Diastolic Sitting 68 mmHg BMI (Body Mass Index) 22.7 kg/m2 05/04/2015 1:41pm Height 66.25 inches 5'6.25" Weight 142.00 lb Heart Rate 84 /min BP Systolic Sitting 122 mmHg BP Diastolic Sitting 80 mmHg Respiratory Rate 16 /min BMI (Body Mass Index) 22.7 kg/m2 01/16/2015 12:43pm Height 66.25 inches 5'6.25" Weight 145.00 lb Heart Rate 72 /min BP Systolic Sitting 128 mmHg BP Diastolic Sitting 78 mmHg BMI (Body Mass Index) 23.2 kg/m2 12/19/2014 9:19am Height 66.25 inches 5'6.25" Heart Rate 72 /min BP Systolic Sitting 128 mmHg BP Diastolic Sitting 76 mmHg Respiratory Rate 18 /min 10/17/2014 9:32am Height 66.25 inches 5'6.25" Weight 140.00 lb Heart Rate 76 /min BP Systolic Sitting 120 mmHg BP Diastolic Sitting 82 mmHg Respiratory Rate 16 /min BMI (Body Mass Index) 22.4 kg/m2 06/10/2014 9:34am Height 66.25 inches 5'6.25" Weight 140.00 lb Heart Rate 72 /min BP Systolic Sitting 112 mmHg BP Diastolic Sitting 70 mmHg Respiratory Rate 16 /min BMI (Body Mass Index) 22.4 kg/m2 Results Test Date Facility Test Result H/L Range Note CBC Auto Diff 02/26/2018 [facility] White Blood 9.0 10^3/uL N 3.5-10.[address] [place] [address] [phone] Red Blood Count 4.79 10^6/uL N 4.00-5.40 Hemoglobin 13.9 g/dL Low 14.0-18.0 Hematocrit 42 % N 42-52 Mean Corpuscular Volume 87 fL N 80-94 Mean Corpuscular Hemoglobin 29 pg N 27-31 Mean Corpuscular HGB Conc 33 g/dL N 31-36 Red Cell Distribution Width 13 % N 10.5-15 Platelet Count 256 10^3/uL N 150-450 Mean Platelet Volume 7.5 um3 N 7.4-10.4 Abs Neutrophils 6.1 10^3/uL N 1.5-7.7 Abs Lymphocytes 1.9 10^3/uL N 1.0-4.8 Abs Monocytes 0.7 10^3/uL N 0-0.8 Abs Eosinophils 0.3 10^3/uL N 0-0.6 Abs Basophils 0 10^3/uL N 0-0.2 Abs Nucleated RBC 0 10^3/uL Granulocyte % 67.5 % N 38-83 Lymphocyte % 20.6 % Low 25-47 Monocyte % 8.0 % High 0-7 Eosinophil % 3.7 % N 0-6 Basophil % 0.2 % N 0-2 Nucleated Red Blood Cells % 0.1 Laboratory test 02/26/2018 [facility] Carbamazepine <pending> finding [address] (Tegretol) [place] [address] [phone] Lamotrigine (Lamictal) 7.1 g/mL 2.5 - 15.0 2 Laboratory test 02/10/2017 [facility] Lamotrigine 11.5 g/mL N 2.5 - [address] (Lamictal) 15.0 [place] [address] [phone] Carbamazepine (Tegretol) 9.3 g/mL N 4.0-12.0 CBC Auto Diff 02/10/2017 [facility] White Blood 8.6 10^3/uL N 3.5-10.[address] [place] [address] [phone] Red Blood Count 5.02 10^6/uL N 4.0-5.4 Hemoglobin 14.5 g/dL N 14.0-18.0 Hematocrit 43 % N 42-52 Mean Corpuscular Volume 86 fL N 80-94 Mean Corpuscular Hemoglobin 29 pg N 27-31 Mean Corpuscular HGB Conc 34 g/dL N 31-36 Red Cell Distribution Width 13 % N 10.5-15 Platelet Count 273 10^3/uL N 150-450 Mean Platelet Volume 7 um3 Low 7.4-10.4 Abs Neutrophils 6.2 10^3/uL N 1.5-7.7 Abs Lymphocytes 1.5 10^3/uL N 1.0-4.8 Abs Monocytes 0.6 10^3/uL N 0-0.8 Abs Eosinophils 0.2 10^3/uL N 0-0.6 Abs Basophils 0 10^3/uL N 0-0.2 Abs Nucleated RBC 0 10^3/uL N Granulocyte % 72.3 % N 38-83 Lymphocyte % 17.4 % Low 25-47 Monocyte % 7.3 % N 1-9 Eosinophil % 2.8 % N 0-6 Basophil % 0.2 % N 0-2 Nucleated Red Blood Cells % 0 N Comp Metabolic Panel 02/10/2017 [facility] Sodium 137 mmol/L N 133-[address] [place] [address] [phone] Potassium 4.2 mmol/L N 3.5-5.0 Chloride 99 mmol/L Low 101-111 Co2 Carbon Dioxide 32 mmol/L N 22-32 Anion Gap 6 mmol/L N 2-11 Glucose 79 mg/dL N 70-100 Blood Urea Nitrogen 12 mg/dL N 6-24 Creatinine 0.85 mg/dL N 0.67-1.17 BUN/Creatinine Ratio 14.1 N 8-20 Calcium 9.8 mg/dL N 8.6-10.3 Total Protein 7.2 g/dL N 6.4-8.9 Albumin 4.7 g/dL N 3.2-5.2 Globulin 2.5 g/dL N 2-4 Albumin/Globulin Ratio 1.9 N 1-3 Total Bilirubin 0.40 mg/dL N 0.2-1.0 Alkaline Phosphatase 120 U/L High 34-104 Alt 18 U/L N 7-52 Ast 18 U/L N 13-39 Egfr Non- 103.2 N >60 Egfr 132.7 N >60 4 Laboratory 02/10/2017 [facility] Vitamin D, 1,25 31 pg/mL N 18 -64 5 test finding [address] [place] [address] [phone] Laboratory 10/31/2015 [facility] Carbamazepine 8.5 N 4.0-12.0 6, [address] (Tegretol) g/[place] [address] [phone] Lamotrigine (Lamictal) 8.8 g/mL N 2.5 - 15.0 8 Comp Metabolic Panel 10/31/2015 [facility] Sodium 138 mmol/L N 133-[address] [place] [address] [phone] Potassium 4.3 mmol/L N 3.5-5.0 Chloride 103 mmol/L N 101-111 Co2 Carbon Dioxide 28 mmol/L N 22-32 Anion Gap 7 mmol/L N 2-11 Glucose 83 mg/dL N 70-100 Blood Urea Nitrogen 14 mg/dL N 6-24 Creatinine 0.85 mg/dL N 0.67-1.17 BUN/Creatinine Ratio 16.5 N 8-20 Calcium 9.5 mg/dL N 8.6-10.3 Total Protein 7.0 g/dL N 6.4-8.9 Albumin 4.6 g/dL N 3.2-5.2 Globulin 2.4 g/dL N 2-4 Albumin/Globulin Ratio 1.9 N 1-3 Total Bilirubin 0.40 mg/dL N 0.2-1.0 Alkaline Phosphatase 92 U/L N 34-104 Alt 14 U/L N 7-52 Ast 16 U/L N 13-39 Egfr Non- 103.8 N >60 Egfr 133.5 N >60 9 CBC Auto Diff 10/31/2015 [facility] White Blood 7.7 10^3/uL N 3.5-10.[address] [place] [address] [phone] Red Blood Count 4.97 10^6/uL N 4.0-5.4 Hemoglobin 14.4 g/dL N 14.0-18.0 Hematocrit 43 % N 42-52 Mean Corpuscular Volume 87 fL N 80-94 Mean Corpuscular Hemoglobin 29 pg N 27-31 Mean Corpuscular HGB Conc 33 g/dL N 31-36 Red Cell Distribution Width 13 % N 10.5-15 Platelet Count 225 10^3/uL N 150-450 Mean Platelet Volume 8 um3 N 7.4-10.4 Abs Neutrophils 4.8 10^3/uL N 1.5-7.7 Abs Lymphocytes 1.9 10^3/uL N 1.0-4.8 Abs Monocytes 0.5 10^3/uL N 0-0.8 Abs Eosinophils 0.4 10^3/uL N 0-0.6 Abs Basophils 0 10^3/uL N 0-0.2 Abs Nucleated RBC 0.02 10^3/uL N Granulocyte % 62.5 % N 38-83 Lymphocyte % 24.6 % Low 25-47 Monocyte % 6.6 % N 1-9 Eosinophil % 5.8 % N 0-6 Basophil % 0.5 % N 0-2 Nucleated Red Blood Cells % 0.3 N CBC Auto Diff 06/01/2015 [facility] White Blood 8.8 10^3/uL N 3.5-10.[address] [place] [address] [phone] Red Blood Count 4.94 10^6/uL N 4.0-5.4 Hemoglobin 14.5 g/dL N 14.0-18.0 Hematocrit 44 % N 42-52 Mean Corpuscular Volume 88 fL N 80-94 Mean Corpuscular Hemoglobin 29 pg N 27-31 Mean Corpuscular HGB Conc 33 g/dL N 31-36 Red Cell Distribution Width 13 % N 10.5-15 Platelet Count 233 10^3/uL N 150-450 Mean Platelet Volume 7 um3 Low 7.4-10.4 Abs Neutrophils 5.5 10^3/uL N 1.5-7.7 Abs Lymphocytes 2.1 10^3/uL N 1.0-4.8 Abs Monocytes 0.7 10^3/uL N 0-0.8 Abs Eosinophils 0.4 10^3/uL N 0-0.6 Abs Basophils 0 10^3/uL N 0-0.2 Abs Nucleated RBC 0.02 10^3/uL N Granulocyte % 62.5 % N 38-83 Lymphocyte % 24.3 % Low 25-47 Monocyte % 8.4 % N 1-9 Eosinophil % 4.4 % N 0-6 Basophil % 0.4 % N 0-2 Nucleated Red Blood Cells % 0.3 N Laboratory test 06/01/2015 [facility] Carbamazepine 10.0 N 4.0 -12.[address] (Tegretol) g/[place] [address] [phone] Lamotrigine (Lamictal) 8.0 g/mL N 2.5 - 15.0 10 CBC Auto Diff 09/23/2014 [facility] White Blood 7.2 10^3/uL N 4.8-10.[address] [place] [address] [phone] Red Blood Count 4.82 10^6/uL N 4.0-5.4 Hemoglobin 14.3 g/dL N 14.0-18.0 Hematocrit 43 % N 42-52 Mean Corpuscular Volume 88 fL N 80-94 Mean Corpuscular Hemoglobin 30 pg N 27-31 Mean Corpuscular HGB Conc 34 g/dL N 31-36 Red Cell Distribution Width 12 % N 10.5-15 Platelet Count 218 10^3/uL N 150-450 Mean Platelet Volume 8 um3 N 7.4-10.4 Abs Neutrophils 4.3 10^3/uL N 1.5-7.7 Abs Lymphocytes 1.9 10^3/uL N 1.0-4.8 Abs Monocytes 0.5 10^3/uL N 0-0.8 Abs Eosinophils 0.4 10^3/uL N 0-0.6 Abs Basophils 0 10^3/uL N 0-0.2 Abs Nucleated RBC 0 10^3/uL N Granulocyte % 59.9 % N 38-83 Lymphocyte % 26.5 % N 25-47 Monocyte % 7.1 % N 1-9 Eosinophil % 5.8 % N 0-6 Basophil % 0.7 % N 0-2 Nucleated Red Blood Cells % 0.1 N Laboratory test 09/23/2014 [facility] Carbamazepine 9.7 g/mL N 4.0-12.[address] [place] [address] [phone] Lamotrigine 6.6 g/mL N 2.5 - 15.0 11 CBC Auto Diff 08/23/2014 [facility] White Blood 7.5 10^3/uL N 4.8-10.[address] [place] [address] [phone] Red Blood Count 4.80 10^6/uL N 4.0-5.4 Hemoglobin 14.5 g/dL N 14.0-18.0 Hematocrit 43 % N 42-52 Mean Corpuscular Volume 89 fL N 80-94 Mean Corpuscular Hemoglobin 30 pg N 27-31 Mean Corpuscular HGB Conc 34 g/dL N 31-36 Red Cell Distribution Width 13 % N 10.5-15 Platelet Count 232 10^3/uL N 150-450 Mean Platelet Volume 8 um3 N 7.4-10.4 Abs Neutrophils 4.7 10^3/uL N 1.5-7.7 Abs Lymphocytes 1.8 10^3/uL N 1.0-4.8 Abs Monocytes 0.5 10^3/uL N 0-0.8 Abs Eosinophils 0.4 10^3/uL N 0-0.6 Abs Basophils 0 10^3/uL N 0-0.2 Abs Nucleated RBC 0.02 10^3/uL N Granulocyte % 63.1 % N 38-83 Lymphocyte % 24.5 % Low 25-47 Monocyte % 7.1 % N 1-9 Eosinophil % 5.0 % N 0-6 Basophil % 0.3 % N 0-2 Nucleated Red Blood Cells % 0.3 N Comp Metabolic Panel 08/23/2014 [facility] Sodium 136 mmol/L N 133-[address] [place] [address] [phone] Potassium 4.5 mmol/L N 3.5-5.0 Chloride 100 mmol/L Low 101-111 Co2 Carbon Dioxide 30 mmol/L N 22-32 Anion Gap 6 mmol/L N 2-11 Glucose 71 mg/dL N 70-100 Blood Urea Nitrogen 12 mg/dL N 6-24 Creatinine 0.82 mg/dL N 0.67-1.17 BUN/Creatinine Ratio 14.6 N 8-20 Calcium 9.3 mg/dL N 8.6-10.3 Total Protein 6.6 g/dL N 6.4-8.9 Albumin 4.5 g/dL N 3.2-5.2 Globulin 2.1 g/dL N 2-4 Albumin/Globulin Ratio 2.1 N 1-3 Total Bilirubin 0.40 mg/dL N 0.2-1.0 Alkaline Phosphatase 88 U/L N 34-104 Alt 17 U/L N 7-52 Ast 18 U/L N 13-39 Egfr Non- 109.6 N >60 Egfr 140.9 N >60 12 Laboratory test 08/23/2014 [facility] Carbamazepine 9.1 g/mL N 4.0-12.[address] [place] [address] [phone] Lamotrigine 8.3 g/mL N 2.5 - 15.0 13 Laboratory test 05/25/2014 [facility] Lamotrigine 7.9 g/mL N 2.5 - 15.0 [address] [place] [address] [phone] Carbamazepine 9.7 g/mL N 4.0-12.0 CBC Auto Diff 05/25/2014 [facility] White Blood 8.4 10^3/uL N 4.8-10.[address] [place] [address] [phone] Red Blood Count 4.57 10^6/uL N 4.0-5.4 Hemoglobin 13.6 g/dL Low 14.0-18.0 Hematocrit 40 % Low 42-52 Mean Corpuscular Volume 88 fL N 80-94 Mean Corpuscular Hemoglobin 30 pg N 27-31 Mean Corpuscular HGB Conc 34 g/dL N 31-36 Red Cell Distribution Width 13 % N 10.5-15 Platelet Count 208 10^3/uL N 150-450 Mean Platelet Volume 8 um3 N 7.4-10.4 Abs Neutrophils 5.0 10^3/uL N 1.5-7.7 Abs Lymphocytes 2.2 10^3/uL N 1.0-4.8 Abs Monocytes 0.5 10^3/uL N 0-0.8 Abs Eosinophils 0.5 10^3/uL N 0-0.6 Abs Basophils 0 10^3/uL N 0-0.2 Abs Nucleated RBC 0.01 10^3/uL N Granulocyte % 60.1 % N 38-83 Lymphocyte % 26.8 % N 25-47 Monocyte % 6.2 % N 1-9 Eosinophil % 6.4 % High 0-6 Basophil % 0.5 % N 0-2 Nucleated Red Blood Cells % 0.1 N 1 [id number] ADDITIONAL INFORMATION This test was developed and its performance characteristics determined by [facility] in a manner consistent with CLIA requirements. This test has not been cleared or approved by the U.S. Food and Drug Administration. Test Performed by: [facility] [address] [place] [address] 3 ADDITIONAL INFORMATION This test was developed and its performance characteristics determined by [facility] in a manner consistent with CLIA requirements. This test has not been cleared or approved by the U.S. Food and Drug Administration. Test Performed by: [facility] [address] [place] [address] 4 Because ethnic data is not always readily available, this report includes an eGFR for both -Americans and non- Americans. The National Kidney Disease Education Program (NKDEP) does not endorse the use of the MDRD equation for patients that are not between the ages of 18 and 70, are , have extremes of body size, muscle mass, or nutritional status, or are non- or non-. According to the National Kidney Foundation, irrespective of diagnosis, the stage of the disease is based on the level of kidney function: Stage Description GFR(mL/min/1.73 m(2)) 1 Kidney damage with normal or decreased GFR 90 2 Kidney damage with mild decrease in GFR 60-89 3 Moderate decrease in GFR 30-59 4 Severe decrease in GFR 15-29 5 Kidney failure <15 (or dialysis) 5 ADDITIONAL INFORMATION This test was developed and its performance characteristics determined by [facility] in a manner consistent with CLIA requirements. This test has not been cleared or approved by the U.S. Food and Drug Administration. Test Performed by: [place] [address] 6 [id number] Test Performed by: [place] [address] Animal Care Taker: Willam Rodriguez II, M.D., Ph.D. 9 Because ethnic data is not always readily available, this report includes an eGFR for both -Americans and non- Americans. The National Kidney Disease Education Program (NKDEP) does not endorse the use of the MDRD equation for patients that are not between the ages of 18 and 70, are , have extremes of body size, muscle mass, or nutritional status, or are non- or non-. According to the National Kidney Foundation, irrespective of diagnosis, the stage of the disease is based on the level of kidney function: Stage Description GFR(mL/min/1.73 m(2)) 1 Kidney damage with normal or decreased GFR 90 2 Kidney damage with mild decrease in GFR 60-89 3 Moderate decrease in GFR 30-59 4 Severe decrease in GFR 15-29 5 Kidney failure <15 (or dialysis) 10 Test Performed by: [place] [address] Animal Care Taker: Willam Rodriguez II, M.D., Ph.D. 11 Test Performed by: [place] [id number] Animal Care Taker: Willam Rodriguez II, M.D., Ph.D. 12 Because ethnic data is not always readily available, this report includes an eGFR for both -Americans and non- Americans. The National Kidney Disease Education Program (NKDEP) does not endorse the use of the MDRD equation for patients that are not between the ages of 18 and 70, are , have extremes of body size, muscle mass, or nutritional status, or are non- or non-. According to the National Kidney Foundation, irrespective of diagnosis, the stage of the disease is based on the level of kidney function: Stage Description GFR(mL/min/1.73 m(2)) 1 Kidney damage with normal or decreased GFR 90 2 Kidney damage with mild decrease in GFR 60-89 3 Moderate decrease in GFR 30-59 4 Severe decrease in GFR 15-29 5 Kidney failure <15 (or dialysis) 13 Test Performed by: [place] [address] Animal Care Taker: Willam Rodriguez II, M.D., Ph.D. 14 Test Performed by: [place] [address] Animal Care Taker: Kwesi Beatty M.D. Procedures Date Code Description Status 07/09/2018 16312 With Simple Cranial Nerve Neurostimulator Pulse Generator Completed 03/11/2018 98833 Neurostimulator Pulse Generator Analysis Simple Completed W/Reprogramming 10/20/2017 58292 Neurostimulator Pulse Generator Analysis Simple Completed W/Reprogramming 09/02/2017 14811 Neurostimulator Pulse Generator Analysis Simple Completed W/Reprogramming 08/05/2017 56852 Neurostimulator Pulse Generator Analysis Simple Completed W/Reprogramming 07/08/2017 03556 Neurostimulator Pulse Generator Analysis Simple Completed W/Reprogramming 06/13/2017 19707 Neurostimulator Pulse Generator Analysis Simple Completed W/Reprogramming 05/02/2017 96409 Neurostimulator Pulse Generator Analysis W/O Reprogramming Completed 02/27/2017 91356 EEG Monitoring & Video Recording Completed 02/26/2017 03242 EEG Monitoring & Video Recording Completed 02/25/2017 03284 EEG Monitoring & Video Recording Completed 07/19/2016 72384 Neurostimulator Pulse Generator Analysis W/O Reprogramming Completed 11/03/2015 83497 Neurostimulator Pulse Generator Analysis W/O Reprogramming Completed Encounters Type Date Location Provider Dx Diagnosis Office Visit 07/09/2018 [facility] Vikas Albarado, G40.219 Local-rel 1:45p symptc epi w cmplx part seiz, ntrct, w/o stat epi Office Visit 05/26/2018 [facility]a Haley MD G40.219 Local-rel 7:00a symptc epi w cmplx part seiz, ntrct, w/o stat epi Office Visit 03/11/2018 [facility] Vikas Albarado, G40.219 Local-rel 2:30p symptc epi w cmplx part seiz, ntrct, w/o stat epi Office Visit 10/20/2017 [facility] Vikas Albarado, G40.219 Local-rel 2:15p symptc epi w cmplx part seiz, ntrct, w/o stat epi [facility] G40.219 Local-rel 11:45a symptc epi w cmplx part seiz, ntrct, w/o stat epi [facility], G40.219 Local-rel 11:00a symptc epi w cmplx part seiz, ntrct, w/o stat epi Office [facility], G40.219 Local-rel 11:15a symptc epi w cmplx part seiz, ntrct, w/o stat epi Office [facility], G40.219 Local-rel 10:15a symptc epi w cmplx part seiz, ntrct, w/o stat epi Office Visit 04/30/2017 [facility] Vikas Albarado, G40.219 Local-rel 2:45p symptc epi w cmplx part seiz, ntrct, w/o stat epi R11.10 Vomiting, unspecified Office Visit 02/28/2017 [facility] G40.219 Local-rel symptc 1:08p Ira Hook MD epi w cmplx part seiz, ntrct, w/o stat epi Office Visit 02/27/2017 [facility] G40.219 Local-rel symptc 1:07p Ira Hook MD epi w cmplx part seiz, ntrct, w/o stat epi Office Visit 02/26/2017 [facility] G40.219 Local-rel symptc 1:06p Clinic MD Miladys epi w cmplx part seiz, ntrct, w/o stat epi Office Visit 02/25/2017 [facility] G40.219 Local-rel symptc 12:57p Clinic MD Miladys epi w cmplx part seiz, ntrct, w/o stat epi Office Visit 02/07/2017 [facility] G40.919 Epilepsy, unsp, 10:15a Clinic MD Verena intractable, without status epilepticus Office Visit 07/19/2016 [facility] G40.919 Epilepsy, unsp, 11:45a Clinic MD Verena intractable, without status epilepticus Z79.899 Other alf (current) drug therapy Office Visit 04/08/2016 [facility] G40.919 Epilepsy, unsp, 11:05a Ira Hook MD intractable, without status epilepticus Office Visit 02/13/2016 [facility] G40.219 Local-rel symptc 1:00p [facility] MD epi w cmplx part seiz, ntrct, w/o stat epi Z79.899 Other termite helper (current) drug therapy Office Visit 11/03/2015 [facility] G40.219 Local-rel 11:30a Clinic MD Verena symptc epi w cmplx part seiz, ntrct, w/o stat epi Z79.899 Other termite helper (current) drug therapy Office Visit 05/04/2015 1:45p [facility] Albarado G40.219 Local-rel [facility] symptc epi w cmplx part seiz, ntrct, w/o stat epi Office Visit 01/16/2015 12:45p [facility] Vikas Albarado, 345.41 [facility] Epilepsy W/Intractable Epilepsy 922.1 Contusion Chest Wall Office Visit 12/19/2014 [facility] Vik[facility] Albarado, 345.41 Local-Related 9:30a [facility] W/Intractable Epilepsy Office Visit 10/17/2014 [facility] Vikas Albarado, 345.41 Local-Related 9:30a [facility] W/Intractable Epilepsy Office Visit 06/10/2014 [facility] Vikas Albarado, 345.41 Local-Related 9:30a [facility] W/Intractable Epilepsy Plan of Treatment Future Appointment(s):11/09/2018 9:30 am - Vikas Albarado MD at [id number]/24/2018 - Vikas Albarado MDG40.219 Localization- related (focal) (partial) symptomatic epilepsy
[2018-07-27 18:12] LABS: ABS Basophils 0 10^3/ul (0-0.2); ABS Eosinophils 0.3 10^3/ul (0-0.6); ABS Lymphocytes 1.6 10^3/ul (1.0-4.8); ABS Monocytes 0.6 10^3/ul (0-0.8); ABS Neutrophils 7.4 10^3/ul (1.5-7.7); ABS Nucleated RBC 0 10^3/ul; Eosinophil % 2.5 %; Hematocrit 45 % (42-52); Mean Corpuscular HGB Conc 34 g/dl (31-36); Mean Corpuscular Hemoglobin 29 pg (27-31); Mean Corpuscular Volume 87 fL (80-94); Mean Platelet Volume 6.5 fL (7.4-10.4); Nucleated Red Blood Cells % 0.1; Platelet Count 334 10^3/ul (150-450); Red Blood Count 5.14 10^6/ul (4.00-5.40); Red Cell Distribution Width 12 % (10.5-15); White Blood Count 9.9 10^3/ul (3.5-10.8)
[2018-07-27 18:20] LABS: Activated Partial Thrombo Time 38.5 seconds (26.0-36.3); INR 0.99 (0.77-1.02)
[2018-07-27 18:32] LABS: Albumin 4.8 g/dL (3.2-5.2); Albumin/Globulin Ratio 1.5 (1-3); BUN/Creatinine Ratio 17.4 (8-20); Calcium 9.7 mg/dL (8.6-10.3); EGFR African American 113.3 (>60); EGFR Non-African American 93.6 (>60); Globulin 3.1 g/dL (2-4); Potassium 3.9 mmol/L (3.5-5.0); Total Bilirubin 0.2 mg/dL (0.2-1.0); Total Protein 7.9 g/dL (6.4-8.9)
[2018-07-27] MEDS ORDERED: NS 0.9% 1000 ML** 1,000 ML IV ONE (19:46)
[2018-07-27] MEDS ORDERED: LAMOTRIGINE 300 MG PO ONE (19:46)
[2018-07-27] MEDS ORDERED: carBAMazepine ER TAB(*) 200 MG PO ONE ×2 (19:46→19:50)
[2018-07-27 20:14] LABS: Carbamazepine 8.3 mcg/mL (4.0-12.0)
[2018-07-27] MEDS ORDERED: lamoTRIgine TAB(*) 100 MG PO ONE (20:21)
[2018-07-27 20:29] LABS: TSH (Thyroid Stimulating Horm) 1.22 mcIU/mL (0.34-5.60)
[2018-07-27] MEDS ORDERED: carBAMazepine ER TAB(*) 100 MG PO ONE (21:00)
--- NOTE | 2018-07-27 21:22 | CONS ---
NEUROLOGY CONSULTATION: DATE OF CONSULT: 07/27/18 LOCATION: He is in the emergency room. REFERRING PHYSICIAN: Dr. Bustamante. CHIEF COMPLAINT: "I don't feel well." HISTORY OF PRESENT ILLNESS: Antoine Silva is a developmentally handicapped gentleman with medically refractory epilepsy. He has had some change in his behaviors and some other concerns over the last days to perhaps weeks. In the last week or more, he has delusions that he is constantly wetting himself. He feels there is urine in his socks and underwear and they are always dry. He has not had any incontinence. He has been complaining about pain near his vagal nerve stimulator in his chest. He "just does not feel well." He states this repeatedly, but otherwise cannot elaborate. He wants to be admitted to the hospital. His mother notes that for months he seems to be more unsteady and also more cognitively impaired. Only recent medication change seems a decrease in his dose of Banzel. He has VNS adjusted in the recent past by Dr. Albarado. He has not had any recent fevers or infections. He recently had a urinalysis done in Dr. Barnard's office which they were verbally told was within normal limits. PAST MEDICAL HISTORY: His past medical history is notable for epilepsy surgery when he was a child to resect abnormal cortex. He has had multiple falls and wears a helmet. He has obsessive-compulsive disorder. He can get agitated at times. He has chronic seborrheic dermatitis. MEDICATIONS AT HOME: Consist of: 1. Banzel 400 mg 1-1/2 tablets in the morning and 1 at night. 2. Lorazepam 2 mg as needed for seizures more than 3 minutes. 3. Lamotrigine 400 mg p.o. q.a.m. and 450 mg q.h.s. 4. Tegretol extended release 200 mg 2 tablets b.i.d. and 100 mg regular release Tegretol at bedtime. 5. Multivitamins. 6. Fluoxetine 80 mg p.o. daily. 7. Cetirizine 10 mg p.o. daily. 8. Various topicals. ALLERGIES: He is not allergic to any medications. REVIEW OF SYSTEMS: Generally notable for the patient repeating "I just don't feel well." He has not had any falls recently, but he is prone to falling. He has about 3 seizures per week, which is no different than the prior ones. He has not had any intestinal problems and he has been eating okay. There is no history of diabetes or heart disease. There is no history of hypertension. He has a vagal nerve stimulator implanted. He was hospitalized for mental health admission for several months at a facility for impaired individuals some years ago. That was when they tried to taper his fluoxetine off according to his mother. He does not smoke. He lives in a residential. PHYSICAL EXAM: He is of short stature and has a decreased head circumference. He has pretty bad seborrheic dermatitis. Heart tones are normal. No murmurs. Lungs are clear anterolaterally. Oral mucosa is moist and there is no pharyngeal edema. There is no cervical adenopathy. Neurologically, pupils react from 3 to 2 mm. Eye movements are choppy, but full. Facial musculature is symmetric. He has a constant frown on. Speech is simple, but clear. Motor exam reveals some spasticity in the arms. There is dystonic posturing of the hands. Auifpv-hs-xvps maneuver is normal bilaterally. There is no asterixis or myoclonus. He has normal strength in all 4 limbs. He is alert and repeats himself. DIAGNOSTIC STUDIES/LAB DATA: Laboratory data so far notable for a normal CBC today. He had a normal INR and his PTT is borderline elevated at 38.5. Chemistries from 05/26/18 were unremarkable and are pending from today. He had a normal TSH on May 2018 at 1.8. IMPRESSION: Worsened behavioral issues for unclear reasons. I do not see anything acutely going on in terms of frequency of seizures. His mother feels that he has declined cognitively and in terms of his gait for the last several months. We will await the rest of his lab results. We will check a carbamazepine level , TSH, and routine labs and urinalysis are pending. I have added a vitamin B12 level. He will continue the same anticonvulsant regimen for now. If there is no evidence of any acute medical issue, then I think he could be discharged home for further outpatient followup with Dr. Albarado and Dr. Barnard. [id number]/[facility] #: [id number] [facility]
--- NOTE | 2018-07-27 22:51 | ED ---
HPI Chest Pain - HPI Summary HPI Summary: Patient complains of left-sided anterior chest wall pain where vagal nerve stimulator has been placed. Also complains of delusion with patient believing that he is dripping urine from his penis as well as from his feet. Patient claims wet underwear when they are dry. Denies fever, cough, sore throat, SOB, N/V/D, abdominal pain, change in urine, change in BM. Patient has a history of epilepsy, is followed by neurology . UA was negative at primary care twice. Patient lives at senior care. - History of Current Complaint Chief Complaint: EDChestWallPain Time Seen by Provider: 07/27/18 18:17 Hx Obtained From: Patient Onset/Duration: Started Days Ago Timing: Constant Initial Severity: Moderate Current Severity: Moderate Pain Intensity: 6 Pain Scale Used: 0-10 Numeric Chest Pain Location: Left Anterior Chest Pain Radiates: No Character: Sharp/Stabbing Aggravating Factor(s): Nothing Alleviating Factor(s): Nothing Associated Signs and Symptoms: Positive: Chest Pain - Allergy/Home Medications Allergies/Adverse Reactions: Allergies Allergy/AdvReac Type Severity Reaction Status Date / Time Pertussis Vaccines Allergy Unknown Verified 07/27/18 18:21 Reaction Details SEASONAL Allergy Unknown Unknown Uncoded 07/27/18 18:21 Reaction Details PMH/Surg Hx/FS Hx/Imm Hx Endocrine/Hematology History: Denies: Hx Diabetes, Hx Thyroid Disease Cardiovascular History: Denies: Hx Hypertension Respiratory History: Reports: Hx Seasonal Allergies Denies: Hx Asthma, Hx Chronic Obstructive Pulmonary Disease (COPD) GI History: Denies: Hx Ulcer Sensory History: Denies: Hx Contacts or Glasses, Hx Hearing Aid Opthamlomology History: Denies: Hx Contacts or Glasses Neurological History: Reports: Hx Seizures, Other Neuro Impairments/Disorders - MR, epilepsy Psychiatric History: Reports: Hx Depression - Surgical History Surgery Procedure, Year, and Place: 2004 VNS Placement, NEURO SURGERY Hx Anesthesia Reactions: No Infectious Disease History: No Infectious Disease History: Denies: Hx Hepatitis, Hx Human Immunodeficiency Virus (HIV), Traveled Outside the [place] in Last 30 Days - Family History Known Family History: Positive: Unknown - due to level 5 caveat - pt with MR Family History: No FHx of CVA. FHx of skin CA - Social History Alcohol Use: None Substance Use Type: Reports: None Smoking Status (MU): Never Smoked Tobacco Review of Systems Constitutional: Negative Eyes: Negative ENT: Negative Cardiovascular: Negative Positive: Chest Pain Gastrointestinal: Negative Genitourinary: Other Musculoskeletal: Negative Skin: Negative Neurological: Negative Psychological: Normal All Other Systems Reviewed And Are Negative: Yes Physical Exam - Summary Physical Exam Summary: Underpants are dry. Anterior left chest wall mildly tender to palpation around the area of legal nerve stimulator.. No erythema, ecchymosis, purulent drainage , wound, deformity or swelling noted. Abdomen soft nontender. Triage Information Reviewed: Yes Vital Signs On Initial Exam: Initial Vitals Temp Pulse Resp BP Pulse Ox 97.8 F 109 20 138/82 98 07/27/18 13:42 07/27/18 13:42 07/27/18 13:42 07/27/18 13:42 07/27/18 13:42 Vital Signs Reviewed: Yes Appearance: Positive: Well-Appearing Skin: Positive: Warm Head/Face: Positive: Normal Head/Face Inspection Eyes: Positive: Normal Neck: Positive: Supple Respiratory/Lung Sounds: Positive: Clear to Auscultation Cardiovascular: Positive: Normal Abdomen Description: Positive: Nontender Male Genital Exam: Positive: Normal Genitalia Musculoskeletal: Positive: Normal Neurological: Positive: Normal Psychiatric: Positive: Normal AVPU Assessment: Alert - [place] Coma Scale Best Eye Response: 4 - Spontaneous Best Motor Response: 6 - Obeys Commands Best Verbal Response: 5 - Oriented Coma Scale Total: 15 Diagnostics - Vital Signs Vital Signs Temp Pulse Resp BP Pulse Ox 07/27/18 18:21 136/94 07/27/18 18:00 86 97 07/27/18 17:51 91 127/74 98 07/27/18 17:49 91 97 07/27/18 16:43 99.0 F 92 18 119/75 97 07/27/18 15:22 96 07/27/18 13:42 97.8 F 109 20 138/82 98 - Laboratory Lab Results: Lab Results 07/27/18 07/27/18 07/27/18 Range/Units 18:04 18:04 18:04 WBC 9.9 (3.5-10.8) 10^3/ul RBC 5.14 (4.00-5.40) 10^6/ul Hgb 15.0 (14.0-18.0) g/dl Hct 45 (42-52) % MCV 87 (80-94) fL MCH 29 (27-31) pg MCHC 34 (31-36) g/dl RDW 12 (10.5-15) % Plt Count 334 (150-450) 10^3/ul MPV 6.5 L (7.4-10.4) fL Neut % (Auto) 74.9 % Lymph % (Auto) 16.0 % Evangeline % (Auto) 6.3 % Eos % (Auto) 2.5 % Baso % (Auto) 0.3 % Absolute Neuts (auto) 7.4 (1.5-7.7) 10^3/ul Absolute Lymphs (auto) 1.6 (1.0-4.8) 10^3/ul Absolute Monos (auto) 0.6 (0-0.8) 10^3/ul Absolute Eos (auto) 0.3 (0-0.6) 10^3/ul Absolute Basos (auto) 0 (0-0.2) 10^3/ul Absolute Nucleated RBC 0 10^3/ul Nucleated RBC % 0.1 ESR Pending INR (Anticoag Therapy) 0.99 (0.77-1.02) APTT 38.5 H (26.0-36.3) seconds Sodium 139 (135-145) mmol/L Potassium 3.9 (3.5-5.0) mmol/L Chloride 102 (101-111) mmol/L Carbon Dioxide 27 (22-32) mmol/L Anion Gap 10 (2-11) mmol/L BUN 16 (6-24) mg/dL Creatinine 0.92 (0.67-1.17) mg/dL Est GFR ( Amer) 113.3 (>60) Est GFR (Non-Af Amer) 93.6 (>60) BUN/Creatinine Ratio 17.4 (8-20) Glucose 157 H (70-100) mg/dL Lactic Acid (0.5-2.0) mmol/L Calcium 9.7 (8.6-10.3) mg/dL Total Bilirubin 0.20 (0.2-1.0) mg/dL AST 16 (13-39) U/L ALT 17 (7-52) U/L Alkaline Phosphatase 132 H (34-104) U/L Total Creatine Kinase 87 (10-223) U/L Troponin I 0.00 (<0.04) ng/mL B-Natriuretic Peptide (<=100) pg/mL Total Protein 7.9 (6.4-8.9) g/dL Albumin 4.8 (3.2-5.2) g/dL Globulin 3.1 (2-4) g/dL Albumin/Globulin Ratio 1.5 (1-3) Vitamin B12 (180-914) pg/mL TSH (0.34-5.60) mcIU/mL Carbamazepine (4.0-12.0) mcg/mL 07/27/18 07/27/18 07/27/18 Range/Units 18:04 18:04 19:02 WBC (3.5-10.8) 10^3/ul RBC (4.00-5.40) 10^6/ul Hgb (14.0-18.0) g/dl Hct (42-52) % MCV (80-94) fL MCH (27-31) pg MCHC (31-36) g/dl RDW (10.5-15) % Plt Count (150-450) 10^3/ul MPV (7.4-10.4) fL Neut % (Auto) % Lymph % (Auto) % Evangeline % (Auto) % Eos % (Auto) % Baso % (Auto) % Absolute Neuts (auto) (1.5-7.7) 10^3/ul Absolute Lymphs (auto) (1.0-4.8) 10^3/ul Absolute Monos (auto) (0-0.8) 10^3/ul Absolute Eos (auto) (0-0.6) 10^3/ul Absolute Basos (auto) (0-0.2) 10^3/ul Absolute Nucleated RBC 10^3/ul Nucleated RBC % ESR INR (Anticoag Therapy) (0.77-1.02) APTT (26.0-36.3) seconds Sodium (135-145) mmol/L Potassium (3.5-5.0) mmol/L Chloride (101-111) mmol/L Carbon Dioxide (22-32) mmol/L Anion Gap (2-11) mmol/L BUN (6-24) mg/dL Creatinine (0.67-1.17) mg/dL Est GFR ( Amer) (>60) Est GFR (Non-Af Amer) (>60) BUN/Creatinine Ratio (8-20) Glucose (70-100) mg/dL Lactic Acid 2.2 H* (0.5-2.0) mmol/L Calcium (8.6-10.3) mg/dL Total Bilirubin (0.2-1.0) mg/dL AST (13-39) U/L ALT (7-52) U/L Alkaline Phosphatase (34-104) U/L Total Creatine Kinase (10-223) U/L Troponin I (<0.04) ng/mL B-Natriuretic Peptide 9 (<=100) pg/mL Total Protein (6.4-8.9) g/dL Albumin (3.2-5.2) g/dL Globulin (2-4) g/dL Albumin/Globulin Ratio (1-3) Vitamin B12 454 (180-914) pg/mL TSH (0.34-5.60) mcIU/mL Carbamazepine (4.0-12.0) mcg/mL 07/27/18 07/27/18 Range/Units 19:03 19:03 WBC (3.5-10.8) 10^3/ul RBC (4.00-5.40) 10^6/ul Hgb (14.0-18.0) g/dl Hct (42-52) % MCV (80-94) fL MCH (27-31) pg MCHC (31-36) g/dl RDW (10.5-15) % Plt Count (150-450) 10^3/ul MPV (7.4-10.4) fL Neut % (Auto) % Lymph % (Auto) % Evangeline % (Auto) % Eos % (Auto) % Baso % (Auto) % Absolute Neuts (auto) (1.5-7.7) 10^3/ul Absolute Lymphs (auto) (1.0-4.8) 10^3/ul Absolute Monos (auto) (0-0.8) 10^3/ul Absolute Eos (auto) (0-0.6) 10^3/ul Absolute Basos (auto) (0-0.2) 10^3/ul Absolute Nucleated RBC 10^3/ul Nucleated RBC % ESR INR (Anticoag Therapy) (0.77-1.02) APTT (26.0-36.3) seconds Sodium (135-145) mmol/L Potassium (3.5-5.0) mmol/L Chloride (101-111) mmol/L Carbon Dioxide (22-32) mmol/L Anion Gap (2-11) mmol/L BUN (6-24) mg/dL Creatinine (0.67-1.17) mg/dL Est GFR ( Amer) (>60) Est GFR (Non-Af Amer) (>60) BUN/Creatinine Ratio (8-20) Glucose (70-100) mg/dL Lactic Acid 2.4 H* (0.5-2.0) mmol/L Calcium (8.6-10.3) mg/dL Total Bilirubin (0.2-1.0) mg/dL AST (13-39) U/L ALT (7-52) U/L Alkaline Phosphatase (34-104) U/L Total Creatine Kinase (10-223) U/L Troponin I (<0.04) ng/mL B-Natriuretic Peptide (<=100) pg/mL Total Protein (6.4-8.9) g/dL Albumin (3.2-5.2) g/dL Globulin (2-4) g/dL Albumin/Globulin Ratio (1-3) Vitamin B12 (180-914) pg/mL TSH 1.22 (0.34-5.60) mcIU/mL Carbamazepine 8.3 (4.0-12.0) mcg/mL Result Diagrams: 07/27/18 18:04 07/27/18 18:04 Lab Statement: Any lab studies that have been ordered have been reviewed, and results considered in the medical decision making process. Chest Pain Course/Dx - Course Course Of Treatment: Patient complains of left-sided anterior chest wall pain where vagal nerve stimulator has been placed. Also complains of delusion with patient believing that he is dripping urine from his penis as well as from his feet. Patient claims wet underwear when they are dry. Denies fever, cough, sore throat, SOB, N/V/D, abdominal pain, change in urine, change in BM. Patient has a history of epilepsy, is followed by neurology . UA was negative at primary care twice. Patient lives at senior care. Physical exam: Patient alert and oriented. Underpants are dry. Anterior left chest wall mildly tender to palpation around the area of legal nerve stimulator.. No erythema, ecchymosis, purulent drainage, wound, deformity or swelling noted. Abdomen soft nontender. Vital signs within normal limits. Lactic 2.4. Labs otherwise unremarkable. Patient also seen by Dr. Damian on behalf of Dr. Albarado. Consultation note per Dr. Damian states that if patient labs are unremarkable patient may be discharged to follow-up in clinic with Dr. Albarado. Staff from the senior care understands and agrees with plan. - Diagnoses Provider Diagnoses: Chest wall pain, Delusion Discharge - Sign-Out/Discharge Documenting (check all that apply): Patient Departure Patient Received Moderate/Deep Sedation with Procedure: No - Discharge Plan Condition: Stable Disposition: HOME Patient Education Materials: Chest Wall Pain (ED) Referrals: Neal Barnard MD [Primary Care Provider] - Additional Instructions: Follow-up with Dr Barnard and your neurologist Dr Albarado. Return to the ED for any new or worsening symptoms. - Billing Disposition and Condition Condition: STABLE Disposition: Home
[2018-07-27 22:55] VITALS: BP 122/85
[2018-07-28 13:00] LABS: Erythrocyte Sed Rate 3 mm/Hr (0-15)
== END 2018-07-27 23:03 | disposition home or self-care (01) ==
LOC: ED 13:38
DX: R07.89 Other chest pain (principal); F22 Delusional disorders; F32.9 Major depressive disorder, single episode, unspecified
CPT/HCPCS: 36415; 71045; 80053; 80156; 82550; 82607; 83605; 83880; 84443; 84484; 85025; 85610; 85652; 85730; 87040; 96360; 96361; 99283; A9270-GY

== ENCOUNTER 2019-06-01 10:27 | Emergency (ER) | payer MEDICARE, MEDICAID ==
--- OUTSIDE RECORDS SUMMARY | 2019-06-01 11:08 | XMS REPORT | Continuity of Care Document ---
:1980 External Reference #:[id number] Author Name Vikas Albarado MD (transmitted by agent of provider Trini Black) Address [address] [place] [address], [facility] [place] [address] Care Team Providers Name Role Phone Neal Barnard MD - Family Medicine Care Team Information Internal Revenue Agent [phone] Problems Active Problems Provider Date Epilepsy characterized by intractable complex Vikas Albarado MD Onset: 2014 partial seizures Refractory epilepsy Vikas Albarado MD Onset: 07/19/2016 Social History Type Date Description Comments Sex Unknown ETOH Use Denies alcohol use Tobacco Use Start: Unknown Patient has never smoked Smoking Status Reviewed: 04/06/19 Patient has never smoked Exercise Type/Frequency Exercises rarely Allergies, Adverse Reactions, Alerts Active Allergies Reaction Severity Comments Date Pertussis Vaccines 06/10/2014 Medications Active Medications SIG Qnty Indications Ordering Date Provider Maren 1 tab by mouth 60tabs Vikas Albarado, 07/09/2018 400mg Tablets twice a day Prozac 1 by mouth twice Unknown 40mg Capsules a day (total 80 mg daily) Lamictal take 4 tablets by 255tabs G40.219 Vikas Albarado, 100mg Tablets mouth every MD morning take 4 1/2 tablets by mouth every evening Tegretol-XR take one tablet 30tabs G40.219 Vikas Albarado, 100mg by mouth at MD Tablets ER 12HR bedtime Tegretol-XR take two tablets 120tabs Vikas Albarado, 200mg by mouth 2 times MD Tablets ER 12HR a day (allan) Seborrheic Cream prn Unknown Tarsum 2 times a week Unknown 10-5% Shampoo Preparation H pt to apply to Unknown anal area as 1-0.25-14.4-15% Cream needed Bacitracin apply to the cuts Unknown 500Unit/GM prn Ointment Selenium Sulfide 2 times a week Unknown 1% Shampoo Glyoxide Liquid apply mixture qid Unknown made up of 2 gtts and 1 tsp xylitol in 15 ml of water, swab gumline especially his front. Nasoocort OTC 2 sprays each Unknown nostril at hs Anbesol prn for mouth Unknown 10% Gel sores Tylenol Arthritis 1 by mouth every 100tabs Unknown Pain 8 hours as needed 650mg Tablets ER Nizoral A-D twice a week to 200units Unknown 1% Shampoo scalp Cetirizine HCL 1 by mouth every 30tabs Unknown 10mg day Tablets Nizoral to face rash bid Unknown Cream prn Miralax 17 gm every day 238gm Unknown 3350NF Powder mixed w/ 8 oz water/juice Docusate Sodium 1 by mouth twice 60caps Unknown 100mg a day Capsules Benefiber 1 tblsp in liquid Unknown Powder po bid Multivitamins 1 by mouth every Unknown Capsules day Lorazepam 1 tab by mouth as 10tabs Andre S. 2mg Tablets needed for Jami Damian seizure lasting >3 minutes, 2 or more lasting 1-3 minutes within 6 hours, or 3 or more <1min wit Immunizations Description No Information Available Vital Signs Date Vital Result Comment 04/06/2019 10:40am Height 66.25 inches 5'6.25" Weight 146.75 lb Heart Rate 88 /min BP Systolic Sitting 108 mmHg BP Diastolic Sitting 80 mmHg Respiratory Rate 20 /min BMI (Body Mass Index) 23.5 kg/m2 11/09/2018 9:30am Height 66.25 inches 5'6.25" Heart Rate 74 /min BP Systolic Sitting 128 mmHg BP Diastolic Sitting 70 mmHg Respiratory Rate 15 /min Results Test Acquired Facility Test Result H/L Range Note Date Laboratory 03/18/2019 [facility] Carbamazepine 9.5 g/mL Normal 4.0-12.0 1, [address] (Tegretol) [place] [address] [phone] Laboratory 03/18/2019 [facility] Lamotrigine 8.8 g/mL 2.5 - [address] (Lamictal) [address] [place] [address] [phone] CBC Auto Diff 11/12/2018 [facility] White Blood Count 8.6 Normal 3.5-10.[address] 10^3/[place] [address] [phone] Red Blood Count 5.07 10^6/uL Normal 4.18-5.48 Hemoglobin 14.3 g/dL Normal 14.0-18.0 Hematocrit 44 % Normal 42-52 Mean Corpuscular Volume 86 fL Normal 80-94 Mean Corpuscular Hemoglobin 28 pg Normal 27-31 Mean Corpuscular HGB Conc 33 g/dL Normal 31-36 Red Cell Distribution Width 13 % Normal 10-15 Platelet Count 260 10^3/uL Normal 150-450 Mean Platelet Volume 7.7 fL Normal 7.4-10.4 Abs Neutrophils 5.7 10^3/uL Normal 1.5-7.7 Abs Lymphocytes 2.0 10^3/uL Normal 1.0-4.8 Abs Monocytes 0.6 10^3/uL Normal 0-0.8 Abs Eosinophils 0.3 10^3/uL Normal 0-0.6 Abs Basophils 0.0 10^3/uL Normal 0-0.2 Abs Nucleated RBC 0.0 10^3/uL Granulocyte % 65.7 % Lymphocyte % 22.7 % Monocyte % 7.3 % Eosinophil % 3.9 % Basophil % 0.4 % Nucleated Red Blood Cells % 0.1 Laboratory 11/12/2018 [facility] Carbamazepine 8.3 Normal 4.0- 12.[address] (Tegretol) g/[place] [address] [phone] Lamotrigine (Lamictal) 7.6 g/mL 2.5 - 15.0 6 Vitamin D, 1,25 Dihydroxy <pending> Comp Metabolic 11/12/2018 [facility] Sodium 138 mmol/L Normal 135-145 Panel [address] [place] [address] [phone] Potassium 4.6 mmol/L Normal 3.5-5.0 Chloride 102 mmol/L Normal 101-111 Co2 Carbon Dioxide 27 mmol/L Normal 22-32 Anion Gap 9 mmol/L Normal 2-11 Glucose 75 mg/dL Normal 70-100 Blood Urea Nitrogen 14 mg/dL Normal 6-24 Creatinine 0.86 mg/dL Normal 0.67-1.17 BUN/Creatinine Ratio 16.3 Normal 8-20 Calcium 9.8 mg/dL Normal 8.6-10.3 Total Protein 6.9 g/dL Normal 6.4-8.9 Albumin 4.5 g/dL Normal 3.2-5.2 Globulin 2.4 g/dL Normal 2-4 Albumin/Globulin Ratio 1.9 Normal 1-3 Total Bilirubin 0.40 mg/dL Normal 0.2-1.0 Alkaline Phosphatase 103 U/L Normal 34-104 Alt 17 U/L Normal 7-52 Ast 15 U/L Normal 13-39 Egfr Non- 100.6 >60 Egfr 121.8 >60 7 1 [id number] 2 [id number] ADDITIONAL INFORMATION This test was developed and its performance characteristics determined by [facility] in a manner consistent with CLIA requirements. This test has not been cleared or approved by the U.S. Food and Drug Administration. Test Performed by: [facility] - [id number] [place] [address] Clinical Pharmacy Coordinator: Willam Rodriguez M.D. Ph.D.; CLIA# [id number] 4 [id number] 5 [id number] 6 ADDITIONAL INFORMATION This test was developed and its performance characteristics determined by [facility] in a manner consistent with CLIA requirements. This test has not been cleared or approved by the U.S. Food and Drug Administration. Test Performed by: [facility] - [id number] [place] [address] 7 Because ethnic data is not always readily [...] 15-29 5 Kidney failure <15 (or dialysis) Procedures Description No Information Available Medical Devices Description No Information Available Encounters Type Date Location Provider Dx Diagnosis Office Visit 11/09/2018 [facility] Vikas Albarado, G40.219 Local- [facility] symp 9:30a [facility] [employer] epi w cmplx part seiz, ntrct, w/o stat epi Assessments Date Code Description Provider 11/09/2018 G40.219 Localization-related (focal) (partial) Vikas Albarado MD symptomatic epilepsy Plan of Treatment Future Appointment(s):07/29/2019 10:30 am - Vikas Albarado MD at [facility] Functional Status Description No Information Available Mental Status Description No Information Available Referrals Description No Information Available
[2019-06-01] MEDS ORDERED: LORazepam TAB(*) 1 MG PO ONE (11:28)
--- NOTE | 2019-06-01 11:35 | ED ---
Neurological HPI - HPI Summary HPI Summary: This pt is a 38 Y/O M presenting to [facility] with a CC of a Sz that lasted for 7 minutes while the pt was in a class this morning at 1000. The seizure is described as tonic clonic which is not unusual for him. He denies any incontinence or any tongue biting. He states that he has no pain. He also states no fevers, chills, headaches, or N/V. The pt is currently at baseline per his caregiver. He is alert and is currently expressing no post ictal confusion. He has no known aggravating or alleviating factors. He has a PMHx of epilepsy and NSV. His PRN Ativan was not given due to the length of the Sz. He also takes Tegretol and Lamectal. - History of Current Complaint Chief Complaint: EDSeizure Stated Complaint: SEIZURES PER EMS Time Seen by Provider: 06/01/19 10:35 Last Known Well Date: Prior to 219906/01/2019 Hx Obtained From: Patient, Family/Crime Scene Examiner Onset/Duration: Sudden Onset, Resolved Timing: Intermittent Episodes Lasting: - 7 Minutes Number of Seizures: 1 - tonic clonic for 7 minutes Pain Intensity: 0 Seizure Character: Total-Clonic Aggravating: Nothing Alleviating: Nothing Associated Signs and Symptoms: Negative: Headache, Incontinent Bladder/Bowel, Nausea/Vomiting, Fever - Allergy/Home Medications Allergies/Adverse Reactions: Allergies Allergy/AdvReac Type Severity Reaction Status Date / Time Pertussis Vaccines Allergy Unknown Verified 07/27/18 18:21 Reaction Details SEASONAL Allergy Unknown Unknown Uncoded 07/27/18 18:21 Reaction Details PMH/Surg Hx/FS Hx/Imm Hx Previously Healthy: Yes Endocrine/Hematology History: Denies: Hx Diabetes, Hx Thyroid Disease Cardiovascular History: Denies: Hx Hypertension Respiratory History: Reports: Hx Seasonal Allergies Denies: Hx Asthma, Hx Chronic Obstructive Pulmonary Disease (COPD) GI History: Denies: Hx Ulcer Sensory History: Denies: Hx Contacts or Glasses, Hx Hearing Aid Opthamlomology History: Denies: Hx Contacts or Glasses Neurological History: Reports: Hx Developmental Delay, Hx Seizures - tonic clonic , Other Neuro Impairments/Disorders - MR, epilepsy Psychiatric History: Reports: Hx Depression - Cancer History Hx Chemotherapy: No Hx Radiation Therapy: No - Surgical History Surgical History: Yes Surgery Procedure, Year, and Place: 2005 VNS Placement, NEURO SURGERY Hx Anesthesia Reactions: No - Immunization History Immunizations Up to Date: Yes Infectious Disease History: No Infectious Disease History: Denies: Hx Hepatitis, Hx Human Immunodeficiency Virus (HIV), Traveled Outside the [place] in Last 30 Days - Family History Known Family History: Positive: Unknown - due to level 5 caveat - pt with MR Family History: No FHx of CVA. FHx of skin CA - Social History Occupation: Disabled Lives: [place] Alcohol Use: None Hx Substance Use: No Substance Use Type: Reports: None Hx Tobacco Use: No Smoking Status (MU): Never Smoked Tobacco Review of Systems Negative: Fever, Chills ENT: Negative - truama due to complications from Sz Negative: Vomiting, Nausea Neurological: Other - Sz lasting 7 minutes All Other Systems Reviewed And Are Negative: Yes Physical Exam - Summary Physical Exam Summary: Constitutional: Well-developed, Well-nourished, Alert. (-) Distressed Skin: Warm, Dry HENT: Normocephalic; Atraumatic Eyes: Conjunctiva normal Neck: Musculoskeletal ROM normal neck. (-) JVD, (-) Nuchal rigidity Cardio: Rhythm regular, rate normal, Heart sounds normal; Intact distal pulses; Radial pulses are 2+ and symmetric. (-) Murmur Pulmonary/Chest wall: Effort normal. (-) Respiratory distress Abd: Soft. (-) Tenderness, (-) Distension, (-) Guarding, (-) Rebound Musculoskeletal: (-) Edema Lymph: (-) Cervical adenopathy Neuro: Alert, PERRL, Oriented to person and place, at neurological baseline, Strength normal, ambulates with assistance. Psych: cooperative Triage Information Reviewed: Yes Vital Signs On Initial Exam: Initial Vitals Temp Pulse Resp BP Pulse Ox 99 F 103 12 127/85 97 06/01/19 10:35 06/01/19 10:35 06/01/19 10:35 06/01/19 10:35 06/01/19 10:35 Vital Signs Reviewed: Yes Procedures - Sedation Patient Received Moderate/Deep Sedation with Procedure: No Diagnostics - Vital Signs Vital Signs Temp Pulse Resp BP Pulse Ox 06/01/19 10:35 99 F 103 12 127/85 97 - Laboratory Lab Statement: Any lab studies that have been ordered have been reviewed, and results considered in the medical decision making process. Course/Dx - Course Course Of Treatment: 38-year-old male history of epilepsy on Tegretol and Lamictal presenting with a 7 minute seizure earlier. - patient at neurologic baseline, no infectious complaints. Did not hit head, no signs of trauma. Caregiver reports the patient has a history of multiple seizures, this was slightly longer than normal which is why they brought him into the ER. Patient did not get his PRN Ativan, will be given that here. Will review case with on- call neurology who is familiar with him. - Diagnoses Provider Diagnoses: Epilepsy - Physician Notifications Discussed Care Of Patient With: Vikas Albarado Time Discussed With Above Provider: 11:48 Instructed by Provider To: Have Pt Call For Appt. - OK to keep medications at current dose. Discharge ED - Sign-Out/Discharge Documenting (check all that apply): Patient Departure - discharge - Discharge Plan Condition: Stable Disposition: HOME Patient Education Materials: Epilepsy (ED) Referrals: Neal Barnard MD [Primary Care Provider] - 2 Days Vikas Albarado MD [Medical Doctor] - As Soon As Possible Additional Instructions: You were seen in the emergency department for an episode of a seizure lasting longer than 5 minutes. If any studies were not completed at the time of discharge you will be called with the relevant results. Please follow up with your primary care doctor in the next 2-3 days and return to the emergency department for worsening or concerning symptoms. It was a pleasure taking care of you today. Please inform your parents to call Dr. Albarado for any medication questions. Please follow up with Dr. Verena CRENSHAW in an outpatient setting. - Billing Disposition and Condition Condition: STABLE Disposition: Home - Attestation Statements Document Initiated by Kenn: Yes Documenting Scribe: Justice Villafana Provider For Whom Kenn is Documenting (Include Credential): Santiago Zaldivar MD Scribe Attestation: I, Justice Villafana, scribed for Santiago Zaldivar MD on 06/01/19 at 1400. Scribe Documentation Reviewed: Yes Provider Attestation: The documentation as recorded by the Justice jackson accurately reflects the service I personally performed and the decisions made by me, Santiago Zaldivar MD Status of Scribe Document: Viewed
[2019-06-01 11:48] VITALS: BP 113/88
== END 2019-06-01 12:35 | disposition home or self-care (01) ==
LOC: ED 10:27
DX: G40.909 Epilepsy, unspecified, not intractable, without status epilepticus (principal); R62.50 Unspecified lack of expected normal physiological development in childhood; F79 Unspecified intellectual disabilities; Z88.7 Allergy status to serum and vaccine; Z91.09 Other allergy status, other than to drugs and biological substances
CPT/HCPCS: 99282; A9270-GY